=== PATIENT | male | born 1965 | race Hispanic/Latino ===

== ENCOUNTER 2020-06-07 18:44 | Inpatient (IN) | payer OTHER ==
[2020-06-07 20:05] LABS: #Lymphocytes 1.4 thou/uL (1.20-3.40); #Monocytes 0.6 thou/uL (0.11-0.59); #Neutrophils 7.4 thou/uL (1.40-6.50); %Basophils 0.2 % (0.0-1.0); %Eosinophils 0.2 % (0.0-10.0); %Lymphocytes 14.9 % (21.0-51.0); %Monocytes 6.4 % (0.0-10.0); %Neutrophils 78.3 % (42.0-75.0); Hemoglobin 11.4 g/dL (14.0-18.0); Mean Corpuscular HGB CONC 32.9 g/dL (32.0-36.0); Mean Corpuscular Hemoglobin 32.7 pg (27.0-31.0); Mean Corpuscular Volume 99.4 fL (78.0-98.0); Platelet Count 246 thou/uL (130-400); RBC Distribution Width 13.3 % (11.5-14.5); Red Blood Cell (RBC) Count 3.48 mill/uL (4.70-6.10); White Blood Cell (WBC) Count 9.4 thou/uL (4.8-10.8)
[2020-06-07 20:29] LABS: ALT (SGPT) 24 U/L (8-55); AST (SGOT) 24 U/L (5-34); Albumin 3.8 g/dL (3.5-5.0); Alkaline Phosphatase 64 U/L (40-110); Anion Gap 17 mmol/L (10-20); BUN (Urea Nitrogen) 64 mg/dL (8.4-25.7); Bilirubin, Total 0.4 mg/dL (0.2-1.2); Calc. Creatinine Clearance 0 mL/min (70-130); Calcium 8.8 mg/dL (7.8-10.44); Carbon Dioxide 11 mmol/L (22-29); Chloride 111 mmol/L (98-107); Estimated GFR-MDRD 12; Globulin 4.8 g/dL (2.4-3.5); Glucose 114 mg/dL (70-105); Potassium 4.4 mmol/L (3.5-5.1); Protein, Total 8.6 g/dL (6.0-8.3); Sodium 135 mmol/L (136-145)
[2020-06-07 21:13] LABS: Bilirubin Negative (Negative); Blood, Urine 3+ (Negative); Clarity Turbid (Clear); Glucose, Urine (Dipstick) Normal (Negative); Ketone, Urine Negative (Negative); Leukocyte 500 Leu/uL (Negative); Nitrite Negative (Negative); Protein, Urine (Dipstick) 30 mg/dL (Neg-Trace); RBC/HPF Greater than 50 HPF (0-3); Renal Epithelial 0-3 HPF (None Seen); Squamous Epithelial 0-3 HPF (0-3); Urobilinogen Normal mg/dL (Less than 2); WBC/HPF Greater than 50 HPF (0-3); pH, Urine 6.5 (5.0-9.0)
[2020-06-07 21:24] LABS: Bacteria/HPF 2+ HPF (None Seen)
[2020-06-07] MEDS ORDERED: MEROPENEM 1 GM/50 ML 1 GM in Premix Bag 1 BAG IVPB SCH (22:30)
[2020-06-07] MEDS ORDERED: Acetaminophen 325 MG TAB PO PRN (23:46)
[2020-06-07] MEDS ORDERED: Acetaminophen 650 MG Suppository PR PRN (23:46)
--- NOTE | 2020-06-08 01:12 | PDOC.HHP ---
Hospitalist HPI - History of Present Illness Reduced appetite History of Present Illness: Patient seen in Dr. Young office for a routine follow-up and states he was told to come into the ED due to labs showing he was dehydrated. He admits to decreased appetite with subsequent reduced PO intake compared to usual. Denies any nausea or vomiting. No other complaints. Has not had any recent fever or chills. He has a history of a renal transplant and concerned because he took the last of his medications today. He has a history of noncompliance but has been on his medications since recent discharge from the hospital on 05/05/2020. He had been admitted and treated for ARF, hyperphosphotemia, hyponatremia and UTI. Patient states immediately following discharge he was eating well but that has diminished in the last few days. Denies any changes with his stools. He has black colored stools and on occasion mild constipation but this is due to iron supplements. Denies any abodminal pain or bright red blood in stool. No headaches or dizziness. No chest pain or shortness of breath. Denies any lightheadedness. All other review of systems apart from those mentioned above are negative. ED COURSE: Labs done in the ED notable for BUN 64, Creat 4.95, and GFR 12. Per ED, Dr. Stein has advised hydration with plans to bring his creat to 2. UA done in the ED which was notable for turbid appearance, Leukocyte esterase, protein 30, Blood 3+, WCC >50, 2+ bacteria, negative for nitrites. He was started on Meropenem in the ED and given 1L of NS. PAST MEDICAL HISTORY: 1. ESRD 2. SLE. 3. Periarticular subcutaneous nodules, started 5 years after renal transplant. 4. Chronic stutter. 5. Patient was on dialysis prior to transplant. PAST SURGICAL HISTORY: 1. Status post renal biopsy. 2. Status post cholecystectomy. 3. Status post living-related renal transplant. FAMILY HISTORY: Reviewed and noncontributory. SOCIAL HISTORY: He drinks socially. Denies alcohol drinking or drug abuse. He is single and lives with his brother. He works as a maintenance truck driver. Fully independent. Does not require any assistance with mobility devices. ALLERGIES: Cipro, cefazolin, gentamicin, vancomycin CURRENT MEDICATIONS: 1. Calcitriol 0.25 mcg daily. 2. Ferrous sulfate 325 mg p.o. b.i.d. 3. Folic acid 1 mg a day. 4. Prednisone 20 mg p.o. daily for 7 days, then 10 mg p.o. after that daily. 5. Sirolimus 2 mg p.o. daily. 6. Sodium bicarbonate 650 mg p.o. t.i.d. - Exam General Appearance: NAD, awake alert General - other findings: BP: 122/66, Pulse: 80, Resp: 18, Pain: 0, O2 sat: 97 on (RA), Temp 97.9 Eye: PERRL, anicteric sclera ENT: normocephalic atraumatic, no oropharyngeal lesions Neck: supple, no lymphadenopathy Neck - other findings: increased girth on Rt side of neck due to SC deposits, chronic, nontender Heart: RRR, no murmur, no gallops, no rubs, normal peripheral pulses Respiratory: CTAB, no wheezes, no rales, no ronchi, normal chest expansion Gastrointestinal: soft (obese), non-tender, non-distended, normal bowel sounds, no guarding, no rigidity Extremities: 1+ LE edema Extremities - other findings: discoloration due to PVD in BLE. Edema worse in left leg than right. Skin - other findings: diffuse periarticular subcutaneous nodules involving primarily arms/hands. Neurological: cranial nerve grossly intact, normal sensation to touch, no focal deficits Musculoskeletal: normal tone, normal strength, no muscle wasting Psychiatric: normal affect, normal behavior, A&O x 3 Hospitalist Results - Labs Result Diagrams: 06/07/20 19:55 06/07/20 19:55 Lab results: WBC 9.4 thou/uL (4.8-10.8) 06/07/20 19:55 Hgb 11.4 g/dL (14.0-18.0) L 06/07/20 19:55 Hct 34.6 % (42.0-52.0) L 06/07/20 19:55 MCV 99.4 fL (78.0-98.0) H 06/07/20 19:55 Plt Count 246 thou/uL (130-400) 06/07/20 19:55 Neutrophils % 78.3 % (42.0-75.0) H 06/07/20 19:55 Sodium 135 mmol/L (136-145) L 06/07/20 19:55 Potassium 4.4 mmol/L (3.5-5.1) 06/07/20 19:55 Chloride 111 mmol/L (98-107) H 06/07/20 19:55 Carbon Dioxide 11 mmol/L (22-29) L 06/07/20 19:55 BUN 64 mg/dL (8.4-25.7) H 06/07/20 19:55 Creatinine 4.95 mg/dL (0.7-1.3) H 06/07/20 19:55 Glucose 114 mg/dL (70-105) H 06/07/20 19:55 Calcium 8.8 mg/dL (7.8-10.44) 06/07/20 19:55 Total Bilirubin 0.4 mg/dL (0.2-1.2) 06/07/20 19:55 AST 24 U/L (5-34) 06/07/20 19:55 ALT 24 U/L (8-55) 06/07/20 19:55 Alkaline Phosphatase 64 U/L (40-110) 06/07/20 19:55 Serum Total Protein 8.6 g/dL (6.0-8.3) H 06/07/20 19:55 Albumin 3.8 g/dL (3.5-5.0) 06/07/20 19:55 Urine Ketones Negative mg/dL (Negative) 06/07/20 20:47 Urine Blood 3+ (Negative) A 06/07/20 20:47 Urine Nitrite Negative (Negative) 06/07/20 20:47 Ur Leukocyte Esterase 500 Beto/uL (Negative) A 06/07/20 20:47 Urine RBC Greater than 50 HPF (0-3) A 06/07/20 20:47 Urine WBC Greater than 50 HPF (0-3) A 06/07/20 20:47 Ur Squamous Epith Cells 0-3 HPF (0-3) 06/07/20 20:47 Urine Bacteria 2+ HPF (None Seen) A 06/07/20 20:47 Hospitalist H&P A/P - Problem (1) Acute kidney injury superimposed on CKD Code(s): N17.9 - ACUTE KIDNEY FAILURE, UNSPECIFIED; N18.9 - CHRONIC KIDNEY DISEASE, UNSPECIFIED Status: Acute Assessment and Plan: Gentle hydration. Consult placed to Dr. Stein, per ED he has been notified and has made recommendations to keep Creat less than 2. Continue to monitor renal function. (2) Decreased appetite Code(s): R63.0 - ANOREXIA Status: Acute Assessment and Plan: Dairy Farm Operator consult. Could possibly be due to underlying infection. (3) Suspected UTI Code(s): R39.89 - OTHER SYMPTOMS AND SIGNS INVOLVING THE GENITOURINARY SYSTEM Status: Acute Assessment and Plan: Recently treated for UTI during last admission. Patient without any urinary symptoms. No fever or WCC. Multiple allergies to antibiotics. Will hold further antibiotics and wait for UCx results. Repeat labs in the AM, add-on lactic acid. (4) Renal transplant recipient Status: Chronic Assessment and Plan: Ran out of medications but did get his doses for today. Home medications reconciled. Will be administered while he is here until prescriptions are filled. (5) History of systemic lupus erythematosus (SLE) Code(s): M32.9 - SYSTEMIC LUPUS ERYTHEMATOSUS, UNSPECIFIED Status: Acute Assessment and Plan: Per patient does not follow-up with anyone for this. Day team to decide of any indication for rheumatology consult. No superimposed infection apparent on exam. (6) Periarticular subcutaneous nodules Code(s): R22.9 - LOCALIZED SWELLING, MASS AND LUMP, UNSPECIFIED Status: Chronic (7) Lower leg edema Code(s): R60.0 - LOCALIZED EDEMA Status: Chronic Assessment and Plan: Per patient long standing and unchanged. Left with increased swelling compared to right leg. Will obtain venous doppler, given recent admission. - Plan Plan: Surrogate decision maker is his brother Junior Penny.
[2020-06-08] MEDS: Sodium Chloride 0.9% 1,000 ML IV SCH ×3 (01:17→17:23)
[2020-06-08 06:01] LABS: #Eosinphils 0.1 thou/uL (0.0-0.7); #Lymphocytes 3.2 thou/uL (1.20-3.40); #Neutrophils 5.9 thou/uL (1.40-6.50); %Basophils 0.4 % (0.0-1.0); %Eosinophils 0.5 % (0.0-10.0); %Lymphocytes 31.3 % (21.0-51.0); %Neutrophils 57.8 % (42.0-75.0); Mean Corpuscular HGB CONC 32.3 g/dL (32.0-36.0); Mean Corpuscular Hemoglobin 32.7 pg (27.0-31.0); Mean Platelet Volume 7.2 fL (7.4-10.4); Platelet Count 244 thou/uL (130-400); RBC Distribution Width 13.5 % (11.5-14.5); Red Blood Cell (RBC) Count 3.36 mill/uL (4.70-6.10); White Blood Cell (WBC) Count 10.3 thou/uL (4.8-10.8)
[2020-06-08 06:07] LABS: Lactic Acid 1.4 mmol/L (0.5-2.2)
[2020-06-08 06:13] LABS: ALT (SGPT) 22 U/L (8-55); AST (SGOT) 11 U/L (5-34); Albumin 3.7 g/dL (3.5-5.0); Alkaline Phosphatase 63 U/L (40-110); Anion Gap 17 mmol/L (10-20); BUN (Urea Nitrogen) 61 mg/dL (8.4-25.7); Bilirubin, Total 0.3 mg/dL (0.2-1.2); Calc. Creatinine Clearance 0 mL/min (70-130); Calcium 8.7 mg/dL (7.8-10.44); Carbon Dioxide 11 mmol/L (22-29); Chloride 114 mmol/L (98-107); Estimated GFR-MDRD 14; Globulin 4.1 g/dL (2.4-3.5); Glucose 99 mg/dL (70-105); Protein, Total 7.8 g/dL (6.0-8.3); Sodium 138 mmol/L (136-145)
--- NOTE | 2020-06-08 07:34 | ULT ---
Venous duplex sonogram bilateral lower extremity HISTORY: Bilateral leg pain and edema. FINDINGS: Each common femoral vein and greater saphenous junction were evaluated along with each femo ral, deep femoral, popliteal, and posterior tibial vein. Good color and spectral Doppler flow. Good compression. Waveforms are somewhat prominent for venous measurements. IMPRESSION : No evidence of DVT within either lower extremity. Bounding venous waveforms may reflect poor right heart output.
[2020-06-08 08:38] VITALS: BMI 34.2
[2020-06-08] MEDS: Ferrous Sulfate 325 MG TAB PO SCH ×2 (08:39→17:08)
[2020-06-08] MEDS: predniSONE 5 MG TAB PO SCH (08:39)
[2020-06-08] MEDS: Folic Acid 1 MG TAB PO SCH (08:39)
[2020-06-08] MEDS: Calcitriol 0.25 MCG CAP PO SCH (08:39)
--- NOTE | 2020-06-08 09:42 | PRG ---
DATE OF SERVICE: 06/08/2020 SUBJECTIVE: Mr. Penny is a 55-year-old male who is status post living-related renal transplant and now admitted for an acute kidney injury that is most likely hemodynamically mediated renal dysfunction. Please note that the patient was admitted a month ago at the hospital due to worsening renal dysfunction-creatinine was 6.9. At that time, he was volume repleted. 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 It also showed some degree of nephrotoxicity from calcium urine inhibitors. For that reason, he his cyclosporine was discontinued and changed to sirolimus. Since discharge, the patient was doing well until about a week ago when he has not been eating well and not hydrating himself. He went [facility] and was found to have a creatinine that was elevated at 4.95. He was recommended to be admitted. He went to the ER. He is currently undergoing IV hydration due to presumed prerenal azotemia. We will be resuming his prednisone and sirolimus. We are being consulted for further management of this acute kidney injury as well as for his renal transplant management. REVIEW OF SYSTEMS: No chest pain. No shortness of breath. No nausea. No vomiting. Decreased appetite. Decreased energy level. No headache. No diplopia. No syncopal episode. No productive cough. No fever or chills. OBJECTIVE: VITAL SIGNS: Blood pressure 128/89, heart rate 81, respiratory rate 16, temperature 98, O2 saturation 99% on room air. GENERAL: Patient is noted to be awake, alert, comfortable, sitting, not in distress. SKIN: Adequate turgor. HEENT: He has pinkish conjunctivae. Anicteric sclerae. NECK: No neck mass. No carotid bruits. No JVD. CHEST: No deformities. LUNGS: Clear breath sounds. No wheezing. No crackles. HEART: Normal sinus rhythm. No murmur. No gallops. No rubs. ABDOMEN: Globular, soft, nontender, no masses. EXTREMITIES: No edema, no deformities. MEDICATIONS: June 08, 2020, was reviewed. LABORATORY DATA: June 08, 2020, white count 10.3, hemoglobin 11. Sodium 138, potassium 4, chloride 114, carbon dioxide 11, BUN 61, creatinine 4.48. June 07, 2020, BUN 64, creatinine 4.95. May 05, 2020, BUN 48, creatinine 3.0. ASSESSMENT AND PLAN: 1. Status post living-related renal transplant. We will continue current sirolimus at 2 mg tablet once a day as well as the prednisone 10 mg tablet once a day. 2. Acute kidney injury, consider hemodynamically-mediated dysfunction. Agree with IV hydration. Increase normal saline to 100 mL/hour. 3. Metabolic acidosis. Start sodium bicarbonate at 650 mg p.o. t.i.d. 4. No indication for any emergent hemodialysis. The patient has issues about buying his sirolimus. We did help fill up the application form so that the patient can get the complementary sirolimus medication from the drug company. Overall, prognosis remains guarded. Job ID: [id number]
[2020-06-08] MEDS: Sodium Bicarbonate Tab 325 MG TAB PO SCH ×3 (10:26→20:33)
--- NOTE | 2020-06-08 12:01 | PDOC.HOSPP ---
- Subjective Encounter Date: 06/08/20 Encounter Time: 10:20 Subjective: no sob or diarrhea or fever - Objective Vital Signs & Weight: Weight Weight 205 lb 14.588 oz Result Diagrams: 06/08/20 05:40 06/08/20 05:40 Hospitalist ROS - Medication Medications: Active Medications Generic Name Dose Route Start Last Admin Trade Name Freq PRN Reason Stop Dose Admin Calcitriol 0.25 mcg 06/08/20 09:00 06/08/20 08:39 Calcitriol 0.25 Mcg Cap PO 0.25 mcg DAILY TANA Administration Ferrous Sulfate 325 mg 06/08/20 08:00 06/08/20 08:39 Ferrous Sulfate 325 Mg Tab PO 325 mg BID-WM TANA Administration Folic Acid 1 mg 06/08/20 09:00 06/08/20 08:39 Folic Acid 1 Mg Tab PO 1 mg DAILY TANA Administration Sodium Chloride 1,000 mls @ 50 mls/hr 06/07/20 23:45 06/08/20 01:17 Normal Saline 0.9% IV 1,000 mls .Q20H TANA Administration Prednisone 10 mg 06/08/20 08:00 06/08/20 08:39 Prednisone 5 Mg Tab PO 10 mg QAM-WM TANA Administration Sirolimus 2 mg 06/08/20 09:00 06/08/20 08:39 Sirolimus 1 Mg Tab PO 2 mg QAM TANA Administration Sodium Bicarbonate 650 mg 06/08/20 09:00 06/08/20 10:26 Sodium Bicarbonate Tab 325 Mg Tab PO 650 mg TID TANA Administration - Exam General Appearance: awake alert Eye: PERRL, anicteric sclera ENT: normocephalic atraumatic, moist mucosa Neck: supple, no JVD Heart: RRR, no murmur Respiratory: no wheezes, no rales Gastrointestinal: soft, non-tender, non-distended, normal bowel sounds Extremities: no cyanosis, 1+ LE edema Neurological: cranial nerve grossly intact, no focal deficits Psychiatric: normal affect, A&O x 3 Hosp A/P (1) Acute kidney injury superimposed on CKD Code(s): N17.9 - ACUTE KIDNEY FAILURE, UNSPECIFIED; N18.9 - CHRONIC KIDNEY DISEA SE, UNSPECIFIED Status: Acute (2) Moderate dehydration Code(s): E86.0 - DEHYDRATION Status: Acute (3) HTN (hypertension) Code(s): I10 - ESSENTIAL (PRIMARY) HYPERTENSION Status: Chronic Qualifiers: Hypertension type: essential hypertension Qualified Code(s): I10 - Essential (primary) hypertension (4) History of systemic lupus erythematosus (SLE) Code(s): M32.9 - SYSTEMIC LUPUS ERYTHEMATOSUS, UNSPECIFIED Status: Chronic (5) Renal transplant recipient Status: Chronic - Plan gentle iv hydration has consulted is on sirolimus and prednisone likely has steroid induced cushings creatinine around 4.4, is on bicarb po 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 is living with his girlfriend, mobilizes in the house
[2020-06-08 13:33] LABS: SARS-CoV-2 MS2 Positive; SARS-CoV-2 N Gene Negative; SARS-CoV-2 S Gene Negative; SARS-CoV-2 by NAA Not Detected (NotDetected); SARS-CoV-2 orf1ab Negative
[2020-06-09] MEDS: Sodium Chloride 0.9% 1,000 ML IV SCH ×3 (02:30→14:59)
[2020-06-09 03:48] LABS: #Eosinphils 0.1 thou/uL (0.0-0.7); #Lymphocytes 2.6 thou/uL (1.20-3.40); #Monocytes 0.7 thou/uL (0.11-0.59); %Basophils 0.4 % (0.0-1.0); %Eosinophils 0.9 % (0.0-10.0); %Lymphocytes 27.5 % (21.0-51.0); %Monocytes 7.3 % (0.0-10.0); Mean Corpuscular Hemoglobin 32.3 pg (27.0-31.0); Mean Platelet Volume 7.4 fL (7.4-10.4); Platelet Count 203 thou/uL (130-400); RBC Distribution Width 13.5 % (11.5-14.5); Red Blood Cell (RBC) Count 3.11 mill/uL (4.70-6.10); White Blood Cell (WBC) Count 9.3 thou/uL (4.8-10.8)
[2020-06-09 04:08] LABS: ALT (SGPT) 16 U/L (8-55); AST (SGOT) 11 U/L (5-34); Albumin 3.2 g/dL (3.5-5.0); Alkaline Phosphatase 65 U/L (40-110); Anion Gap 14 mmol/L (10-20); BUN (Urea Nitrogen) 54 mg/dL (8.4-25.7); Bilirubin, Total 0.2 mg/dL (0.2-1.2); Calc. Creatinine Clearance 30 mL/min (70-130); Calcium 8.2 mg/dL (7.8-10.44); Carbon Dioxide 14 mmol/L (22-29); Chloride 117 mmol/L (98-107); Estimated GFR-MDRD 17; Globulin 3.5 g/dL (2.4-3.5); Glucose 117 mg/dL (70-105); Potassium 3.5 mmol/L (3.5-5.1); Protein, Total 6.7 g/dL (6.0-8.3); Sodium 141 mmol/L (136-145)
--- NOTE | 2020-06-09 07:49 | PRG ---
DATE OF SERVICE: 06/09/2020 SUBJECTIVE: Mr. Penny is a 55-year-old male, who is status post living-related renal transplant, status post antibody mediated cellular rejection, and was admitted due to volume depletion. Creatinine was noted to be elevated at 4.95. Empiric volume repletion has been given. Renal function is slowly improving. Most recent creatinine now is 3.81 mg%. The patient voices no new complaints. No chest pain or shortness of breath. OBJECTIVE: VITAL SIGNS: Blood pressure is 118/68, heart rate 82, respiratory rate 16, temperature 97.6, and O2 saturation 100%. GENERAL: Awake, alert, comfortable, obese, not in distress. SKIN: Adequate turgor. HEENT: He has pinkish conjunctivae. Anicteric sclerae. No neck mass. No carotid bruits. No JVD. CHEST: No deformities. LUNGS: Clear breath sounds. No wheezing. No crackles. HEART: Normal sinus rhythm. No murmurs, gallops, or rubs. ABDOMEN: Globular, soft, nontender. No masses. EXTREMITIES: No edema. No deformities. Numerous subcutaneous calcifications. MEDICATIONS: Medications of June 09, 2020, reviewed. LABORATORY DATA: Laboratories of June 09, 2020; white count 9.3, hemoglobin 10. Sodium 141, potassium 3.5, chloride 117, carbon dioxide 14, BUN 54, creatinine 3.81. GFR 17 mL/minute. AST 11, ALT 16, and albumin 3.2. June 07, 2020 urinalysis shows rbc greater than 50, wbc greater than 50, protein is 30. 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 ASSESSMENT AND PLAN: 1. Acute kidney injury-most likely superimposed hemodynamically-mediated renal dysfunction. Continue IV fluid-increase normal saline to 125 mL/hour. Creatinine slowly improving. No indication for any dialytic intervention. 2. Status post living-related renal transplant, stable. We will continue current immunosuppressive regimen with this patient. Currently, on sirolimus and prednisone. 3. The patient was counseled regarding adequate p.o. intake. He has not been eating or drinking well at home. 4. We will be rechecking a CBC, basic met in a.m. Job ID: [id number]
[2020-06-09] MEDS: predniSONE 5 MG TAB PO SCH (09:17)
[2020-06-09] MEDS: Ferrous Sulfate 325 MG TAB PO SCH ×2 (09:17→17:42)
[2020-06-09] MEDS: Calcitriol 0.25 MCG CAP PO SCH (09:18)
[2020-06-09] MEDS: Folic Acid 1 MG TAB PO SCH (09:18)
[2020-06-09] MEDS: Sodium Bicarbonate Tab 325 MG TAB PO SCH ×3 (09:57→20:42)
--- NOTE | 2020-06-09 13:14 | PDOC.HOSPP ---
- Subjective Encounter Date: 06/09/20 Encounter Time: 12:00 Subjective: no sob, feels better is amb in room, eating well - Objective Vital Signs & Weight: Vital Signs (12 hours) Temp Pulse Resp BP Pulse Ox 06/09/20 11:57 97.8 F 90 18 134/81 100 06/09/20 08:00 97.7 F 85 18 101/59 L 100 06/09/20 04:00 97.6 F 82 16 118/68 100 Weight Weight 209 lb 3.2 oz I&O: 06/08/20 06/09/20 06/10/20 06:59 06:59 06:59 Intake Total 3160 Balance 3160 Result Diagrams: 06/09/20 03:21 06/09/20 03:21 Hospitalist ROS - Medication Medications: Active Medications Generic Name Dose Route Start Last Admin Trade Name Freq PRN Reason Stop Dose Admin Calcitriol 0.25 mcg 06/08/20 09:00 06/09/20 09:18 Calcitriol 0.25 Mcg Cap PO 0.25 mcg DAILY TANA Administration Ferrous Sulfate 325 mg 06/08/20 08:00 06/09/20 09:17 Ferrous Sulfate 325 Mg Tab PO 325 mg BID-WM TANA Administration Folic Acid 1 mg 06/08/20 09:00 06/09/20 09:18 Folic Acid 1 Mg Tab PO 1 mg DAILY TANA Administration Sodium Chloride 1,000 mls @ 125 mls/hr 06/09/20 07:20 06/09/20 09:20 Normal Saline 0.9% IV 1,000 mls .Q8H TANA Administration Prednisone 10 mg 06/08/20 08:00 06/09/20 09:17 Prednisone 5 Mg Tab PO 10 mg QAM-WM TANA Administration Sirolimus 2 mg 06/08/20 09:00 06/09/20 09:18 Sirolimus 1 Mg Tab PO 2 mg QAM TANA Administration Sodium Bicarbonate 650 mg 06/08/20 09:00 06/09/20 09:57 Sodium Bicarbonate Tab 325 Mg Tab PO 650 mg TID TANA Administration - Exam General Appearance: awake alert Eye: PERRL, anicteric sclera ENT: no oropharyngeal lesions, moist mucosa Neck: supple, no JVD Heart: RRR, no gallops Respiratory: no wheezes, no rales Gastrointestinal: soft, non-tender, non-distended, normal bowel sounds Extremities: no cyanosis, 1+ LE edema Neurological: cranial nerve grossly intact, no focal deficits Psychiatric: A&O x 3 Hosp A/P (1) Acute kidney injury superimposed on CKD Code(s): N17.9 - ACUTE KIDNEY FAILURE, UNSPECIFIED; N18.9 - CHRONIC KIDNEY DISEASE, UNSPECIFIED Status: Acute (2) Moderate dehydration Code(s): E86.0 - DEHYDRATION Status: Acute (3) HTN (hypertension) Code(s): I10 - ESSENTIAL (PRIMARY) HYPERTENSION Status: Chronic Qualifiers: Hypertension type: essential hypertension Qualified Code(s): I10 - Essential (primary) hypertension (4) History of systemic lupus erythematosus (SLE) Code(s): M32.9 - SYSTEMIC LUPUS ERYTHEMATOSUS, UNSPECIFIED Status: Chronic (5) Renal transplant recipient Status: Chronic - Plan gentle iv hydration is on sirolimus and prednisone likely has steroid induced cushings creatinine around 3.8, is on bicarb po 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 is living with his girlfriend, mobilizes in the house hemostable
[2020-06-10] MEDS: Sodium Chloride 0.9% 1,000 ML IV SCH ×4 (00:30→22:39)
[2020-06-10 05:48] LABS: #Eosinphils 0.1 thou/uL (0.0-0.7); #Lymphocytes 2.8 thou/uL (1.20-3.40); #Monocytes 0.7 thou/uL (0.11-0.59); #Neutrophils 5.3 thou/uL (1.40-6.50); %Basophils 0.4 % (0.0-1.0); %Eosinophils 1.5 % (0.0-10.0); %Lymphocytes 30.6 % (21.0-51.0); %Monocytes 8.2 % (0.0-10.0); %Neutrophils 59.4 % (42.0-75.0); Hemoglobin 9.6 g/dL (14.0-18.0); Mean Corpuscular HGB CONC 31.2 g/dL (32.0-36.0); Mean Corpuscular Hemoglobin 31.7 pg (27.0-31.0); Mean Platelet Volume 7.5 fL (7.4-10.4); Platelet Count 193 thou/uL (130-400); RBC Distribution Width 13.6 % (11.5-14.5); Red Blood Cell (RBC) Count 3.02 mill/uL (4.70-6.10)
[2020-06-10 06:09] LABS: Anion Gap 14 mmol/L (10-20); BUN (Urea Nitrogen) 48 mg/dL (8.4-25.7); Calc. Creatinine Clearance 36 mL/min (70-130); Calcium 8.2 mg/dL (7.8-10.44); Carbon Dioxide 15 mmol/L (22-29); Chloride 117 mmol/L (98-107); Estimated GFR-MDRD 20; Glucose 99 mg/dL (70-105); Potassium 3.5 mmol/L (3.5-5.1); Sodium 142 mmol/L (136-145)
--- NOTE | 2020-06-10 08:08 | PRG ---
DATE OF SERVICE: 06/10/2020 SUBJECTIVE: Mr. Penny is a 55-year-old male, status post living-related renal transplant, recently had a biopsy-proven diagnosis of acute cellular rejection-antibody mediated and admitted for an acute kidney injury due to volume depletion. He is currently receiving IV hydration. The patient has been counseled regarding fluid and p.o. intake at home. He also ran out of his sirolimus. Application form has been done for the patient and we will attempt to re-fax it again to the drug company. No complaints of chest pain or shortness of breath. OBJECTIVE: VITAL SIGNS: Blood pressure 124/63, heart rate 84, respiratory rate 16, temperature 97.8, O2 saturation 100%. GENERAL: The patient is awake, alert, supine, comfortable, not in distress. SKIN: Adequate turgor. HEENT: Slightly pale conjunctivae. Anicteric sclerae. NECK: No neck mass. No carotid bruits. No JVD. CHEST: No deformities. LUNGS: Clear breath sounds. HEART: Normal sinus rhythm. No murmurs, gallops, or rubs. ABDOMEN: Globular, soft, nontender. No masses. EXTREMITIES: No edema. No deformities. MEDICATIONS: On June 10, 2020, were reviewed. LABORATORY DATA: On June 10, 2020, white count 9, hemoglobin 9.6. Sodium 142, potassium 3.5, chloride 117, carbon dioxide 15, BUN 48, creatinine 3.3, GFR 20 mL/min, glucose 99, calcium 8.2. ASSESSMENT AND PLAN: 1. Anemia. We will increase ferrous sulfate to one tablet b.i.d. 2. Acute kidney [id number]-ydmommgy renal dysfunction. Creatinine slowly improving from a peak of 4.95 to a most recent value of 3.3. Continue IV hydration. Currently, on normal saline at 125 mL/hour. 3. Secondary hyperparathyroidism. Continue calcitriol. We will recheck basic metabolic profile and CBC in a.m. Job ID: [id number]
[2020-06-10] MEDS: Folic Acid 1 MG TAB PO SCH (08:25)
[2020-06-10] MEDS: predniSONE 5 MG TAB PO SCH (08:25)
[2020-06-10] MEDS: Ferrous Sulfate 325 MG TAB PO SCH ×2 (08:26→17:27)
[2020-06-10] MEDS: Sodium Bicarbonate Tab 325 MG TAB PO SCH ×3 (08:26→20:54)
[2020-06-10] MEDS: Calcitriol 0.25 MCG CAP PO SCH (08:26)
--- NOTE | 2020-06-10 10:37 | PDOC.HOSPP ---
- Subjective Encounter Date: 06/10/20 Encounter Time: 10:00 Subjective: no sob, feels better - Objective Vital Signs & Weight: Vital Signs (12 hours) Temp Pulse Resp BP Pulse Ox 06/10/20 08:00 98.5 F 95 18 119/74 97 Weight Weight 214 lb 11.2 oz I&O: 06/09/20 06/10/20 06/11/20 06:59 06:59 06:59 Intake Total 3160 1910 Balance 3160 191 Result Diagrams: 06/10/20 05:19 06/10/20 05:19 Hospitalist ROS - Medication Medications: Active Medications Generic Name Dose Route Start Last Admin Trade Name Freq PRN Reason Stop Dose Admin Calcitriol 0.25 mcg 06/08/20 09:00 06/10/20 08:26 Calcitriol 0.25 Mcg Cap PO 0.25 mcg DAILY TANA Administration Ferrous Sulfate 325 mg 06/08/20 08:00 06/10/20 08:26 Ferrous Sulfate 325 Mg Tab PO 325 mg BID-WM TANA Administration Folic Acid 1 mg 06/08/20 09:00 06/10/20 08:25 Folic Acid 1 Mg Tab PO 1 mg DAILY TANA Administration Sodium Chloride 1,000 mls @ 125 mls/hr 06/09/20 07:20 06/10/20 08:28 Normal Saline 0.9% IV 1,000 mls .Q8H TANA Administration Prednisone 10 mg 06/08/20 08:00 06/10/20 08:25 Prednisone 5 Mg Tab PO 10 mg QAM-WM TANA Administration Sirolimus 2 mg 06/08/20 09:00 06/10/20 08:26 Sirolimus 1 Mg Tab PO 2 mg QAM TANA Administration Sodium Bicarbonate 650 mg 06/08/20 09:00 06/10/20 08:26 Sodium Bicarbonate Tab 325 Mg Tab PO 650 mg TID TANA Administration - Exam General Appearance: awake alert Eye: PERRL, anicteric sclera ENT: no oropharyngeal lesions, moist mucosa Neck: supple, no JVD Heart: RRR, no murmur Respiratory: no wheezes, no rales Gastrointestinal: soft, non-tender, non-distended, normal bowel sounds Extremities: no cyanosis, no edema Neurological: cranial nerve grossly intact, no focal deficits Psychiatric: normal affect, A&O x 3 Hosp A/P (1) Acute kidney injury superimposed on CKD Code(s): N17.9 - ACUTE KIDNEY FAILURE, UNSPECIFIED; N18.9 - CHRONIC KIDNEY DISEASE, UNSPECIFIED Status: Acute (2) Moderate dehydration Code(s): E86.0 - DEHYDRATION Status: Acute (3) HTN (hypertension) Code(s): I10 - ESSENTIAL (PRIMARY) HYPERTENSION Status: Chronic Qualifiers: Hypertension type: essential hypertension Qualified Code(s): I10 - Essential (primary) hypertension (4) History of systemic lupus erythematosus (SLE) Code(s): M32.9 - SYSTEMIC LUPUS ERYTHEMATOSUS, UNSPECIFIED Status: Chronic (5) Renal transplant recipient Status: Chronic - Plan continue iv hydration is on sirolimus and prednisone likely has steroid induced cushings creatinine around 3, is on bicarb po 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 is living with his girlfriend, mobilizes in the house hemostable dc plan in am if cleared by
[2020-06-10] MEDS: Polyethylene Glycol 3350 17 GM Packet PO SCH (14:48)
[2020-06-11 03:50] LABS: #Eosinphils 0.1 thou/uL (0.0-0.7); #Lymphocytes 2.4 thou/uL (1.20-3.40); #Monocytes 0.6 thou/uL (0.11-0.59); #Neutrophils 5.7 thou/uL (1.40-6.50); %Eosinophils 0.9 % (0.0-10.0); %Monocytes 6.9 % (0.0-10.0); %Neutrophils 65.2 % (42.0-75.0); Hemoglobin 9.5 g/dL (14.0-18.0); Mean Corpuscular HGB CONC 32.2 g/dL (32.0-36.0); Mean Corpuscular Hemoglobin 32.9 pg (27.0-31.0); Mean Platelet Volume 7.2 fL (7.4-10.4); Platelet Count 181 thou/uL (130-400); RBC Distribution Width 13.7 % (11.5-14.5); White Blood Cell (WBC) Count 8.8 thou/uL (4.8-10.8)
[2020-06-11 04:12] LABS: Anion Gap 14 mmol/L (10-20); BUN (Urea Nitrogen) 45 mg/dL (8.4-25.7); Calc. Creatinine Clearance 38 mL/min (70-130); Carbon Dioxide 14 mmol/L (22-29); Chloride 117 mmol/L (98-107); Estimated GFR-MDRD 21; Glucose 92 mg/dL (70-105); Potassium 3.5 mmol/L (3.5-5.1); Sodium 141 mmol/L (136-145)
[2020-06-11] MEDS: Sodium Chloride 0.9% 1,000 ML IV SCH ×3 (06:34→23:53)
[2020-06-11] MEDS: predniSONE 5 MG TAB PO SCH (08:18)
[2020-06-11] MEDS: Ferrous Sulfate 325 MG TAB PO SCH ×2 (08:18→17:46)
[2020-06-11] MEDS: Sodium Bicarbonate Tab 325 MG TAB PO SCH ×3 (08:18→20:30)
[2020-06-11] MEDS: Folic Acid 1 MG TAB PO SCH (08:18)
[2020-06-11] MEDS: Calcitriol 0.25 MCG CAP PO SCH (08:19)
[2020-06-11] MEDS: Polyethylene Glycol 3350 17 GM Packet PO SCH (08:19)
--- NOTE | 2020-06-11 08:27 | PRG ---
DATE OF SERVICE: 06/11/2020 SUBJECTIVE: Mr. Penny is a 55-year-old male, who is status post living-related renal transplant, who was admitted for an acute kidney injury. The acute kidney injury was a hemodynamically-mediated dysfunction. He has been receiving IV hydration with slow improvement of the renal function. He is continuing his current immunosuppressive regimen. This morning, he voices no new complaints. He denies any chest pain or shortness of breath. OBJECTIVE: VITAL SIGNS: Blood pressure 115/68, heart rate 87, respiratory rate 18, temperature 97.9, O2 saturation 99% on room air. GENERAL: The patient is awake, alert, supine, comfortable, not in overt distress. Obese. SKIN: Adequate turgor. HEENT: He has pinkish slightly pale conjunctivae. Anicteric sclerae. NECK: No neck mass. No carotid bruits. No JVD. CHEST: No deformities. LUNGS: Clear breath sounds. No wheezing. No crackles. HEART: Normal sinus rhythm. No murmur. No gallops. No rubs. ABDOMEN: Globular, soft, nontender. No masses. EXTREMITIES: No edema. No deformities. MEDICATIONS: Medications of June 11, 2020, were reviewed. LABORATORY DATA: Laboratories of June 11, 2020; white count 8.8, hemoglobin 9.5. Sodium 141, potassium 3.5, chloride 117, carbon dioxide 14, BUN 45, creatinine 3.09, GFR 21 mL/minute, glucose 92, calcium 8. ASSESSMENT AND PLAN: 1. Acute kidney injury-a superimposed hemodynamically-mediated renal dysfunction. Continue IV hydration. Slowly improving renal function. No indication for any dialytic intervention. 2. Status post living-related renal transplant-the patient is status post renal biopsy with findings of an antibody mediated cellular rejection. Currently, on sirolimus and prednisone. Again as previously mentioned, there is no indication for any dialytic intervention with this patient. 3. Anemia-currently on iron supplementation. Recheck CBC, basic metabolic profile in a.m. Job ID: [id number]
--- NOTE | 2020-06-11 11:47 | PDOC.HOSPP ---
- Subjective Encounter Date: 06/11/20 Encounter Time: 10:00 Subjective: no sob, feels better is ambulating in room - Objective Vital Signs & Weight: Vital Signs (12 hours) Temp Pulse Resp BP Pulse Ox 06/11/20 07:30 97.9 F 87 18 115/68 99 Weight Weight 216 lb I&O: 06/10/20 06/11/20 06/12/20 06:59 06:59 06:59 Intake Total 1909 4110 Balance 1909 411 Result Diagrams: 06/11/20 03:17 06/11/20 03:17 Hospitalist ROS - Medication Medications: Active Medications Generic Name Dose Route Start Last Admin Trade Name Freq PRN Reason Stop Dose Admin Calcitriol 0.25 mcg 06/08/20 09:00 06/11/20 08:19 Calcitriol 0.25 Mcg Cap PO 0.25 mcg DAILY TANA Administration Ferrous Sulfate 325 mg 06/08/20 08:00 06/11/20 08:18 Ferrous Sulfate 325 Mg Tab PO 325 mg BID-WM TANA Administration Folic Acid 1 mg 06/08/20 09:00 06/11/20 08:18 Folic Acid 1 Mg Tab PO 1 mg DAILY TANA Administration Sodium Chloride 1,000 mls @ 125 mls/hr 06/09/20 07:20 06/11/20 06:34 Normal Saline 0.9% IV 1,000 mls .Q8H TANA Administration Polyethylene Glycol 17 gm 06/10/20 09:00 06/11/20 08:19 Polyethylene Glycol 3350 17 Gm Packet PO Not Given DAILY TANA Prednisone 10 mg 06/08/20 08:00 06/11/20 08:18 Prednisone 5 Mg Tab PO 10 mg QAM-WM TANA Administration Sirolimus 2 mg 06/08/20 09:00 06/11/20 08:19 Sirolimus 1 Mg Tab PO 2 mg QAM TANA Administration Sodium Bicarbonate 650 mg 06/08/20 09:00 06/11/20 08:18 Sodium Bicarbonate Tab 325 Mg Tab PO 650 mg TID TANA Administration - Exam General Appearance: awake alert Eye: PERRL, anicteric sclera ENT: no oropharyngeal lesions, moist mucosa Neck: supple, no JVD Heart: RRR, no murmur Respiratory: no wheezes, no rales Gastrointestinal: soft, non-tender, non-distended, normal bowel sounds Extremities: no cyanosis, no edema Neurological: cranial nerve grossly intact, no focal deficits Psychiatric: normal affect, A&O x 3 Hosp A/P (1) Acute kidney injury superimposed on CKD Code(s): N17.9 - ACUTE KIDNEY FAILURE, UNSPECIFIED; N18.9 - CHRONIC KIDNEY DISEASE, UNSPECIFIED Status: Acute (2) Moderate dehydration Code(s): E86.0 - DEHYDRATION Status: Resolved (3) HTN (hypertension) Code(s): I10 - ESSENTIAL (PRIMARY) HYPERTENSION Status: Chronic Qualifiers: Hypertension type: essential hypertension Qualified Code(s): I10 - Essential (primary) hypertension (4) History of systemic lupus erythematosus (SLE) Code(s): M32.9 - SYSTEMIC LUPUS ERYTHEMATOSUS, UNSPECIFIED Status: Chronic (5) Renal transplant recipient Status: Chronic - Plan continue iv hydration is on sirolimus and prednisone likely has steroid induced cushings creatinine around 3, is on bicarb po 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 is living with his girlfriend, mobilizes well hemostable dc plan likely sunday, d/w
[2020-06-12 04:31] LABS: #Eosinphils 0.2 thou/uL (0.0-0.7); #Lymphocytes 2.7 thou/uL (1.20-3.40); #Monocytes 0.6 thou/uL (0.11-0.59); #Neutrophils 5.3 thou/uL (1.40-6.50); %Basophils 0.2 % (0.0-1.0); %Eosinophils 1.9 % (0.0-10.0); %Lymphocytes 30.3 % (21.0-51.0); %Monocytes 7.3 % (0.0-10.0); %Neutrophils 60.3 % (42.0-75.0); Hemoglobin 9.5 g/dL (14.0-18.0); Mean Corpuscular HGB CONC 31.8 g/dL (32.0-36.0); Mean Corpuscular Hemoglobin 32.6 pg (27.0-31.0); Mean Platelet Volume 7.2 fL (7.4-10.4); Platelet Count 173 thou/uL (130-400); RBC Distribution Width 13.8 % (11.5-14.5); Red Blood Cell (RBC) Count 2.92 mill/uL (4.70-6.10); White Blood Cell (WBC) Count 8.7 thou/uL (4.8-10.8)
[2020-06-12 04:53] LABS: Anion Gap 11 mmol/L (10-20); BUN (Urea Nitrogen) 43 mg/dL (8.4-25.7); Calc. Creatinine Clearance 39 mL/min (70-130); Calcium 8.1 mg/dL (7.8-10.44); Carbon Dioxide 14 mmol/L (22-29); Chloride 117 mmol/L (98-107); Estimated GFR-MDRD 22; Glucose 98 mg/dL (70-105); Potassium 3.5 mmol/L (3.5-5.1); Sodium 138 mmol/L (136-145)
[2020-06-12 09:30] VITALS: BP 117/73; TEMP 97.5
[2020-06-12] MEDS: Ferrous Sulfate 325 MG TAB PO SCH (09:38)
[2020-06-12] MEDS: predniSONE 5 MG TAB PO SCH (09:38)
[2020-06-12] MEDS: Folic Acid 1 MG TAB PO SCH (09:38)
[2020-06-12] MEDS: Sodium Bicarbonate Tab 325 MG TAB PO SCH (09:38)
[2020-06-12] MEDS: Calcitriol 0.25 MCG CAP PO SCH (09:39)
[2020-06-12] MEDS: Polyethylene Glycol 3350 17 GM Packet PO SCH (09:39)
[2020-06-12] MEDS: Sodium Chloride 0.9% 1,000 ML IV SCH (09:39)
--- NOTE | 2020-06-12 10:17 | PRG ---
DATE OF SERVICE: 06/12/2020 SUBJECTIVE: Mr. Penny is a 55-year-old male, who is status post living-related renal transplant, recent diagnosis of antibody-mediated renal rejection, and readmitted due to acute kidney injury that was hemodynamically-mediated renal dysfunction. The patient has had a history of decreased p.o. intake and has weight loss. During this hospitalization, his creatinine has slowly improved from a peak of 4.95 to a most recent value of 3.01. He was also maintained on the sirolimus and prednisone. During this hospitalization, the case monitor helped him to obtain the sirolimus. No new complaints today. No chest pain or shortness of breath. OBJECTIVE: VITAL SIGNS: Blood pressure 117/73, heart rate 99, respiratory rate 18, temperature 97.5, O2 sats 96%. GENERAL: The patient is awake, alert, comfortable, not in distress. SKIN: Adequate turgor. HEENT: Pinkish conjunctivae. Anicteric sclerae. No neck mass. No carotid bruits. No JVD. CHEST: No deformities. LUNGS: Clear breath sounds. No wheezing. No crackles. HEART: Normal sinus rhythm. No murmurs. No gallops. No rubs. ABDOMEN: Globular, soft, nontender. No masses. EXTREMITIES: No edema. No deformities. MEDICATIONS: Medications of June 12, 2020, reviewed. LABORATORY DATA: Laboratories of June 12, 2020: White count 8.7, hemoglobin 9.5. potassium 3.5, chloride 117, carbon dioxide 14, BUN 43, creatinine 3.01, glucose 98, calcium 8.1. ASSESSMENT AND PLAN: 1. Acute kidney injury - much improved creatinine. I feel that creatinine 3.01 is near baseline. Consider for discharge today and follow up with Renal Clinic. 2. Status post living-related renal transplant. We will continue sirolimus and prednisone. Please note, the patient has a biopsy which showed an antibody- mediated rejection. He also had some evidence of calcineurin nephrotoxicity. For that reason, the patient was told not to take his cyclosporine. 3. Anemia. Continuing daily iron supplementation. From a renal point of view, the patient can be discharged. The patient was instructed to call my office for a followup visit. Job ID: [id number] [facility] CENTERFernando
--- NOTE | 2020-06-12 10:30 | PDOC.HOSPP ---
- Subjective Encounter Date: 06/12/20 Encounter Time: 10:28 Subjective: Mr. Penny was seen today in follow-up of acute on chronic kidney disease. He does not have any complaints. - Objective Vital Signs & Weight: Vital Signs (12 hours) Temp Pulse Resp BP Pulse Ox 06/12/20 08:00 97.5 F L 99 18 117/73 96 Weight Weight 216 lb I&O: 06/11/20 06/12/20 06/13/20 06:59 06:59 06:59 Intake Total 4110 2800 Balance 4110 2800 Result Diagrams: 06/12/20 03:39 06/12/20 03:40 Hospitalist ROS - Medication Medications: Active Medications Generic Name Dose Route Start Last Admin Trade Name Freq PRN Reason Stop Dose Admin Acetaminophen 650 mg 06/07/20 23:46 06/11/20 20:30 Acetaminophen 325 Mg Tab PO 650 mg Q4H PRN Administration Headache/Fever/Mild Pain (1-3) Calcitriol 0.25 mcg 06/08/20 09:00 06/12/20 09:39 Calcitriol 0.25 Mcg Cap PO 0.25 mcg DAILY TANA Administration Ferrous Sulfate 325 mg 06/08/20 08:00 06/12/20 09:38 Ferrous Sulfate 325 Mg Tab PO 325 mg BID-WM TAAN Administration Folic Acid 1 mg 06/08/20 09:00 06/12/20 09:38 Folic Acid 1 Mg Tab PO 1 mg DAILY TANA Administration Sodium Chloride 1,000 mls @ 125 mls/hr 06/09/20 07:20 06/12/20 09:39 Normal Saline 0.9% IV 1,000 mls .Q8H TANA Administration Polyethylene Glycol 17 gm 06/10/20 09:00 06/12/20 09:39 Polyethylene Glycol 3350 17 Gm Packet PO Not Given DAILY TANA Prednisone 10 mg 06/08/20 08:00 06/12/20 09:38 Prednisone 5 Mg Tab PO 10 mg QAM-WM TANA Administration Sirolimus 2 mg 06/08/20 09:00 06/12/20 09:39 Sirolimus 1 Mg Tab PO 2 mg QAM TANA Administration Sodium Bicarbonate 650 mg 06/08/20 09:00 06/12/20 09:38 Sodium Bicarbonate Tab 325 Mg Tab PO 650 mg TID TANA Administration - Exam Eye: PERRL, anicteric sclera Heart: RRR, no murmur, no gallops, no rubs, normal peripheral pulses Respiratory: CTAB, no wheezes, no rales, no ronchi, normal chest expansion, no tachypnea, normal percussion Gastrointestinal: soft, non-tender, non-distended, normal bowel sounds, no palpable masses, no hepatomegaly Extremities: no cyanosis, no edema Hosp A/P (1) HTN (hypertension) Code(s): I10 - ESSENTIAL (PRIMARY) HYPERTENSION Status: Chronic Qualifiers: Hypertension type: essential hypertension Qualified Code(s): I10 - Essential (primary) hypertension (2) History of systemic lupus erythematosus (SLE) Code(s): M32.9 - SYSTEMIC LUPUS ERYTHEMATOSUS, UNSPECIFIED Status: Chronic (3) Moderate dehydration Code(s): E86.0 - DEHYDRATION Status: Resolved (4) Acute kidney injury superimposed on CKD Code(s): N17.9 - ACUTE KIDNEY FAILURE, UNSPECIFIED; N18.9 - CHRONIC KIDNEY DI SEASE, UNSPECIFIED Status: Acute (5) Renal transplant recipient Status: Chronic - Plan * Acute on chronic kidney injury- he is close to his baseline * He has been cleared for discharge by Dr. Stein * Stable for discharge from IM standpoint
--- NOTE | 2020-06-14 08:53 | DIS ---
DATE OF ADMISSION: 06/09/2020 DATE OF DISCHARGE: 06/12/2020 DISCHARGE DISPOSITION: Home. DISCHARGE DIAGNOSES: 1. Acute on chronic kidney injury. 2. History of systemic lupus erythematosus. 3. T-cell mediated transplant rejection. 4. Status post renal transplant. 5. History of end-stage renal disease. DISCHARGE MEDICATIONS: Include; 1. Rocaltrol 0.25 mcg daily. 2. Sirolimus 2 mg daily. 3. Folic acid 1 mg p.o. daily. 4. Sodium bicarbonate 650 mg p.o. t.i.d. 5. Prednisone 10 mg p.o. daily. 6. Iron 65 mg p.o. daily. IMAGING DONE DURING THE HOSPITAL STAY: The patient had bilateral lower extremity venous Dopplers, which was negative for DVT. CODE STATUS: Full code. ALLERGIES: TO CEFAZOLIN, CIPROFLOXACIN, GENTAMICIN, AND VANCOMYCIN. HOSPITAL COURSE: Mr. Penny is a pleasant 55-year-old gentleman who presented to the emergency room with decreased appetite and generalized weakness. He was found to be in acute on chronic kidney injury. This was thought to be due to volume depletion and prerenal azotemia. He was gently hydrated over the course of several days. Due to his history of previous renal transplant, Dr. Stein, his engineering director, was consulted as well. 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 He will be following up with Dr. Stein in the outpatient setting and he was also taken off of cyclophosphamide due to evidence of calcineurin nephrotoxicity. He has an appointment already scheduled with Dr. Stein, which he is to follow up with and also he is to follow up with his primary care physician, Dr. Cannon in approximately 1 week as well too. Job ID: [id number]
--- NOTE | 2020-06-15 01:32 | PQF ---
CLINICAL DOCUMENTATION CLARIFICATION FORM: Dear : Neil Jasso Date / Time: 06/15/20 0131 Please exercise your independent, professional judgment in responding to the clarification form. Clinical indicators are provided on the bottom of this form for your review Please check appropriate box(es): Acute on Chronic Renal Failure Please specify Stage of CKD : [ ] CKD stage 1 [ ] CKD stage 2 [ ] CKD stage 3 [X ] CKD stage 4 [ ] CKD stage 5 [ ] ESRD [ ] Other diagnosis [ ] Unable to determine Physician Signature: Date/Time: For continuity of documentation, please document condition throughout progress notes and discharge summary. Thank You. To be completed by CDI/Coding staff for physician review: Present Clinical Indicators - Signs / Symptoms / Labs Results and Location in Medical Record [X] BP 128/89, Pulse 81, Resp 16, Temp 98.0 Vital signs 06/07 [X] BUN 64, Creatinine 4.95 GFR 12 Laboratory 06/07 [X] BUN 61, Creatinine 4.48, GFR 14 Laboratory 06/08 [X] BUN 54, Creatinine 3.81, GFR 17 Laboratory 06/09 [X] Pt was on dialysis prior to transplant H&P p1 06/09 Catalan PA-C [X] Come into the ED due to labs showing hr was dehydrated H&P p1 06/09 Catalan PA-C [X] Acute kidney injury superimposed CKD H&P p3 06/09 Catalan PA-C [X] lower leg edema H&P p3 06/09 Catalan PA-C Present Risk Factors Results and Location in Medical Record [X] Hx of ESRD s/p renal transplant H&P p1 06/09 Catalan PA-C [X] SLE H&P p1 06/09 Catalan PA-C [X] HTN Present Treatments Results and Location in Medical Record [X] IVF NS 1L MAR 06/07 [X] IV Bicarbonate 650 oral NOV 23 [X] Series of GFR labs Laboratory 06/07 [X] Nephorlogy Consult Consult Dr Stein 06/08 CDS/Automatic Pad Making Machine Operator Signature: Vanessa Pradhan Phone #: ext [phone] Date/Time: 06/15/2020 0131 This is a permanent part of the Medical Record [facility]
== END 2020-06-12 13:50 | disposition home or self-care (01) | DRG 699 ==
LOC: ERS 18:44 → ERHOLD 21:52 → ONC 06-08 12:15 → OBSVTOIN 06-09 10:09
PROVIDERS: ADMIT Internal Medicine; ATTEND Internal Medicine
DX: T86.12 Kidney transplant failure (principal); N17.9 Acute kidney failure, unspecified; E87.2 Acidosis; N25.81 Secondary hyperparathyroidism of renal origin; N18.4 Chronic kidney disease, stage 4 (severe); M32.9 Systemic lupus erythematosus, unspecified; Y83.0 Surgical operation with transplant of whole organ as the cause of abnormal reaction of the patient, or of later complication, without mention of misadventure at the time of the procedure; Z20.828 Contact with and (suspected) exposure to other viral communicable diseases; E86.0 Dehydration; R63.0 Anorexia; R22.9 Localized swelling, mass and lump, unspecified; E86.9 Volume depletion, unspecified; D63.1 Anemia in chronic kidney disease; Z88.1 Allergy status to other antibiotic agents; Z68.35 Body mass index [BMI] 35.0-35.9, adult; Z79.899 Other long term (current) drug therapy; Z79.52 Long term (current) use of systemic steroids
CPT/HCPCS: 36415; 80048; 80053; 81003; 81015; 83605; 83735; 85025; 87086; 87635; 93970; 96361; 96365; G0378; J7512; J7520; U0003

== ENCOUNTER 2021-03-21 12:31 | Inpatient (IN) | payer MEDICAID, OTHER ==
[2021-03-21] MEDS ORDERED: Azithromycin 500 MG VIAL ONE (13:13)
[2021-03-21 13:19] LABS: Hemoglobin 12.5 g/dL (14.0-18.0); Mean Corpuscular HGB CONC 31.2 g/dL (32.0-36.0); Mean Platelet Volume 7.5 fL (7.4-10.4); Platelet Count 162 thou/uL (130-400); RBC Distribution Width 14.4 % (11.5-14.5); Red Blood Cell (RBC) Count 4.16 mill/uL (4.70-6.10); White Blood Cell (WBC) Count 24.3 thou/uL (4.8-10.8)
[2021-03-21 13:32] LABS: ALT (SGPT) 21 U/L (8-55); AST (SGOT) 22 U/L (5-34); Albumin 3.6 g/dL (3.5-5.0); Alkaline Phosphatase 63 U/L (40-110); Anion Gap 21 mmol/L (10-20); BUN (Urea Nitrogen) 47 mg/dL (8.4-25.7); Bilirubin, Total 1.1 mg/dL (0.2-1.2); Calc. Creatinine Clearance 0 mL/min (70-130); Carbon Dioxide 10 mmol/L (22-29); Chloride 108 mmol/L (98-107); Glucose 93 mg/dL (70-105); Protein, Total 8.6 g/dL (6.0-8.3); Sodium 135 mmol/L (136-145)
[2021-03-21 13:43] LABS: Band 39 % (5-11); Lymphocytes 7 % (21-51); MDiff Complete? YES; Monocytes 9 % (0-10); Neutrophil 43 % (42-75); Platelet Morphology Comment Appears Adequate; Polychromasia SLIGHT = 2-3 cells (100X) (0-2/hpf); Reactive Lymphocytes 2 % (0-10)
[2021-03-21 13:54] LABS: SARS-CoV-2 NAA Rapid Test Not Detected (NotDetected)
[2021-03-21 13:54] LABS: CKMB 0.9 ng/mL (0-6.6)
[2021-03-21 16:16] LABS: Bilirubin Negative (Negative); Blood, Urine 3+ (Negative); Clarity Extra Turbid (Clear); Glucose, Urine (Dipstick) Normal (Negative); Ketone, Urine Negative (Negative); Leukocyte 500 Leu/uL (Negative); Nitrite Negative (Negative); Protein, Urine (Dipstick) 70 mg/dL (Neg-Trace); RBC/HPF Greater than 50 HPF (0-3); Specific Gravity, Urine 1.015 (1.002-1.036); Squamous Epithelial 0-3 HPF (0-3); Urobilinogen Normal mg/dL (Less than 2); WBC/HPF Greater than 50 HPF (0-3)
[2021-03-21] MEDS ORDERED: Ondansetron ODT 4 MG TAB PO PRN (16:16)
[2021-03-21 16:21] LABS: Bacteria/HPF 1+ HPF (None Seen)
[2021-03-21 17:17] LABS: Phosphorus 3.4 mg/dL (2.3-4.7)
[2021-03-21 17:23] LABS: Troponin I 0.015 ng/mL (< 0.028)
[2021-03-21] MEDS ORDERED: predniSONE 20 MG TAB PO SCH (17:30)
[2021-03-21] MEDS ORDERED: Diltiazem 125 MG in Sodium Chloride 0.9% 100 ML IVPB SCH ×2 (17:30→19:15)
[2021-03-21 18:19] VITALS: BMI 33.3
[2021-03-21] MEDS: Sodium Chloride 0.9% 1,000 ML IV SCH (18:30)
[2021-03-21] MEDS ORDERED: Piperacillin/Tazobactam 3.375 GM in Sodium Chloride 0.9% 100 ML IVPB SCH (18:30)
[2021-03-21 20:14] LABS: Troponin I 0.011 ng/mL (< 0.028)
[2021-03-21 20:48] LABS: Creatinine, Urine 39.75 mg/dL (63-166)
[2021-03-21] MEDS: Heparin 5,000 UNITS/ML VIAL SC SCH (22:23)
[2021-03-22] MEDS: Sodium Chloride 0.9% 1,000 ML IV SCH ×4 (01:13→18:13)
[2021-03-22 05:03] LABS: #Lymphocytes 2.8 thou/uL (1.20-3.40); #Monocytes 1.1 thou/uL (0.11-0.59); #Neutrophils 20.2 thou/uL (1.40-6.50); %Basophils 0.1 % (0.0-1.0); %Eosinophils 0.1 % (0.0-10.0); %Lymphocytes 11.6 % (21.0-51.0); %Monocytes 4.4 % (0.0-10.0); %Neutrophils 83.8 % (42.0-75.0); Hemoglobin 10.6 g/dL (14.0-18.0); Mean Corpuscular Hemoglobin 29.8 pg (27.0-31.0); Mean Corpuscular Volume 96.1 fL (78.0-98.0); Mean Platelet Volume 7.6 fL (7.4-10.4); Platelet Count 123 thou/uL (130-400); RBC Distribution Width 14.4 % (11.5-14.5); Red Blood Cell (RBC) Count 3.57 mill/uL (4.70-6.10); White Blood Cell (WBC) Count 24.2 thou/uL (4.8-10.8)
[2021-03-22 05:23] LABS: Anion Gap 16 mmol/L (10-20); BUN (Urea Nitrogen) 41 mg/dL (8.4-25.7); Calc. Creatinine Clearance 31 mL/min (70-130); Carbon Dioxide 10 mmol/L (22-29); Chloride 114 mmol/L (98-107); Glucose 80 mg/dL (70-105); Potassium 3.7 mmol/L (3.5-5.1); Sodium 136 mmol/L (136-145)
[2021-03-22] MEDS ORDERED: Piperacillin/Tazobactam 3.375 GM in Sodium Chloride 0.9% 100 ML IVPB SCH (06:00)
[2021-03-22] MEDS ORDERED: Magnesium 2 GM/50 ML 2 GM in Premix Bag 1 BAG IVPB SCH (06:49)
[2021-03-22] MEDS ORDERED: Azithromycin 200 MG/5 ML Oral Suspension PO SCH (09:00)
[2021-03-22] MEDS ORDERED: predniSONE 5 MG TAB PO SCH (09:00)
[2021-03-22] MEDS ORDERED: predniSONE 20 MG TAB PO SCH (09:00)
[2021-03-22] MEDS: Folic Acid 1 MG TAB PO SCH (09:35)
[2021-03-22] MEDS: Ferrous Sulfate 325 MG TAB PO SCH (09:35)
[2021-03-22] MEDS: Heparin 5,000 UNITS/ML VIAL SC SCH ×3 (09:35→21:25)
[2021-03-22] MEDS: predniSONE 5 MG TAB PO SCH ×2 (09:35→09:54)
[2021-03-22] MEDS: Calcitriol 0.25 MCG CAP PO SCH (09:35)
[2021-03-22] MEDS ORDERED: Azithromycin 250 MG, Admixture Fee 1 EACH in Sodium Chloride 0.9% 250 ML 250 ML IVPB SCH (13:00)
[2021-03-22] MEDS: cefTRIAXone\\ROCEPHIN 2 GM in Sodium Chloride 0.9% 100 ML IVPB SCH (14:54)
[2021-03-22] MEDS: diphenhydrAMINE 50 MG/ML VIAL IVP SCH (14:54)
[2021-03-22] MEDS: Sodium Bicarbonate Tab 325 MG TAB PO SCH ×2 (14:54→20:31)
[2021-03-23] MEDS: Sodium Chloride 0.9% 1,000 ML IV SCH ×4 (01:27→20:04)
[2021-03-23 05:28] LABS: #Lymphocytes 1.7 thou/uL (1.20-3.40); #Monocytes 0.7 thou/uL (0.11-0.59); #Neutrophils 13.7 thou/uL (1.40-6.50); %Basophils 0.1 % (0.0-1.0); %Eosinophils 0.1 % (0.0-10.0); %Lymphocytes 10.7 % (21.0-51.0); %Monocytes 4.1 % (0.0-10.0); Hemoglobin 9.9 g/dL (14.0-18.0); Mean Corpuscular Hemoglobin 30.7 pg (27.0-31.0); Mean Platelet Volume 7.7 fL (7.4-10.4); Platelet Count 115 thou/uL (130-400); RBC Distribution Width 14.7 % (11.5-14.5); Red Blood Cell (RBC) Count 3.23 mill/uL (4.70-6.10); White Blood Cell (WBC) Count 16.1 thou/uL (4.8-10.8)
[2021-03-23 05:37] LABS: Anion Gap 15 mmol/L (10-20); BUN (Urea Nitrogen) 48 mg/dL (8.4-25.7); Calc. Creatinine Clearance 30 mL/min (70-130); Calcium 8.6 mg/dL (7.8-10.44); Carbon Dioxide 10 mmol/L (22-29); Chloride 116 mmol/L (98-107); Glucose 117 mg/dL (70-105); Sodium 137 mmol/L (136-145)
[2021-03-23] MEDS: Ferrous Sulfate 325 MG TAB PO SCH (09:33)
[2021-03-23] MEDS: Heparin 5,000 UNITS/ML VIAL SC SCH (09:33)
[2021-03-23] MEDS: Folic Acid 1 MG TAB PO SCH (09:33)
[2021-03-23] MEDS: Calcitriol 0.25 MCG CAP PO SCH (09:33)
[2021-03-23] MEDS: Sodium Bicarbonate Tab 325 MG TAB PO SCH ×3 (09:34→20:04)
[2021-03-23] MEDS: cefTRIAXone\\ROCEPHIN 2 GM in Sodium Chloride 0.9% 100 ML IVPB SCH (15:32)
[2021-03-23] MEDS: diphenhydrAMINE 50 MG/ML VIAL IVP SCH (15:32)
[2021-03-23] MEDS: Apixaban 5 MG TAB PO SCH (20:04)
[2021-03-23] MEDS ORDERED: diphenhydrAMINE 25 MG CAP PO SCH (23:30)
[2021-03-24] MEDS: Sodium Chloride 0.9% 1,000 ML IV SCH ×3 (04:04→15:22)
[2021-03-24 05:03] LABS: Anion Gap 16 mmol/L (10-20); BUN (Urea Nitrogen) 42 mg/dL (8.4-25.7); Calc. Creatinine Clearance 31 mL/min (70-130); Calcium 8.7 mg/dL (7.8-10.44); Carbon Dioxide 10 mmol/L (22-29); Chloride 117 mmol/L (98-107); Glucose 80 mg/dL (70-105); Potassium 3.5 mmol/L (3.5-5.1); Sodium 139 mmol/L (136-145)
[2021-03-24 05:05] LABS: #Basophils 0.1 thou/uL (0.0-0.2); #Eosinphils 0.2 thou/uL (0.0-0.7); #Lymphocytes 3.2 thou/uL (1.20-3.40); #Monocytes 0.6 thou/uL (0.11-0.59); #Neutrophils 9.3 thou/uL (1.40-6.50); %Basophils 0.9 % (0.0-1.0); %Eosinophils 1.6 % (0.0-10.0); %Monocytes 4.3 % (0.0-10.0); %Neutrophils 69.3 % (42.0-75.0); Mean Corpuscular HGB CONC 30.6 g/dL (32.0-36.0); Mean Corpuscular Hemoglobin 29.9 pg (27.0-31.0); Mean Corpuscular Volume 97.7 fL (78.0-98.0); Mean Platelet Volume 7.6 fL (7.4-10.4); Platelet Count 159 thou/uL (130-400); RBC Distribution Width 14.6 % (11.5-14.5); Red Blood Cell (RBC) Count 3.68 mill/uL (4.70-6.10); White Blood Cell (WBC) Count 13.4 thou/uL (4.8-10.8)
[2021-03-24] MEDS ORDERED: Lidocaine 1% PF 5 ML VIAL ONE (08:33)
[2021-03-24] MEDS ORDERED: PROPOFOL 200 MG/20 ML VIAL ONE (08:33)
[2021-03-24] MEDS ORDERED: Dronedarone HCl 400 MG TAB PO SCH (09:30)
[2021-03-24] MEDS: Calcitriol 0.25 MCG CAP PO SCH (10:00)
[2021-03-24] MEDS: Folic Acid 1 MG TAB PO SCH (10:00)
[2021-03-24] MEDS: Apixaban 5 MG TAB PO SCH (10:00)
[2021-03-24] MEDS: Ferrous Sulfate 325 MG TAB PO SCH (10:00)
[2021-03-24] MEDS: Sodium Bicarbonate Tab 325 MG TAB PO SCH ×3 (10:00→20:36)
[2021-03-24] MEDS: Acetaminophen 325 MG TAB PO PRN ×2 (10:13→18:04)
[2021-03-24] MEDS: cefTRIAXone\\ROCEPHIN 2 GM in Sodium Chloride 0.9% 100 ML IVPB SCH (13:30)
[2021-03-24] MEDS: diphenhydrAMINE 50 MG/ML VIAL IVP SCH (13:31)
[2021-03-24] MEDS: Dronedarone HCl 400 MG TAB PO SCH (18:01)
[2021-03-24] MEDS: Apixaban 2.5 MG TAB PO SCH (20:36)
[2021-03-24] MEDS ORDERED: Apixaban 2.5 MG TAB PO SCH (21:00)
[2021-03-25 04:38] LABS: #Eosinphils 0.2 thou/uL (0.0-0.7); #Lymphocytes 2.6 thou/uL (1.20-3.40); #Monocytes 0.7 thou/uL (0.11-0.59); #Neutrophils 6.4 thou/uL (1.40-6.50); %Basophils 0.2 % (0.0-1.0); %Eosinophils 1.7 % (0.0-10.0); %Lymphocytes 25.9 % (21.0-51.0); %Monocytes 7.5 % (0.0-10.0); %Neutrophils 64.7 % (42.0-75.0); Hemoglobin 10.5 g/dL (14.0-18.0); Mean Corpuscular HGB CONC 32.8 g/dL (32.0-36.0); Mean Corpuscular Hemoglobin 31.6 pg (27.0-31.0); Mean Corpuscular Volume 96.3 fL (78.0-98.0); Mean Platelet Volume 7.7 fL (7.4-10.4); Platelet Count 127 thou/uL (130-400); RBC Distribution Width 14.4 % (11.5-14.5); Red Blood Cell (RBC) Count 3.31 mill/uL (4.70-6.10); White Blood Cell (WBC) Count 9.9 thou/uL (4.8-10.8)
[2021-03-25] MEDS: Sodium Chloride 0.9% 1,000 ML IV SCH (07:16)
[2021-03-25] MEDS: Dronedarone HCl 400 MG TAB PO SCH (08:20)
[2021-03-25] MEDS: Calcitriol 0.25 MCG CAP PO SCH (08:30)
[2021-03-25] MEDS: Ferrous Sulfate 325 MG TAB PO SCH (08:30)
[2021-03-25] MEDS: Sodium Bicarbonate Tab 325 MG TAB PO SCH (08:30)
[2021-03-25] MEDS: Apixaban 2.5 MG TAB PO SCH (08:30)
[2021-03-25] MEDS: Folic Acid 1 MG TAB PO SCH (08:30)
[2021-03-25 10:17] LABS: Fungus Stain Final report (.)
[2021-03-25] MEDS: diphenhydrAMINE 50 MG/ML VIAL IVP SCH (13:58)
[2021-03-25] MEDS: cefTRIAXone\\ROCEPHIN 2 GM in Sodium Chloride 0.9% 100 ML IVPB SCH (13:58)
[2021-03-25] MEDS ORDERED: Prevnar 13-Val Conj/PF 0.5 ML SYRINGE IM ONE (14:45)
[2021-03-25] MEDS ORDERED: COVID-19 VACC,AD26(JANSSEN)/PF 0.5 ML SYRINGE IM ONE (14:48)
[2021-03-25] MEDS ORDERED: Sodium Bicarbonate Tab 325 MG TAB PO SCH (15:00)
[2021-03-25 16:33] VITALS: BP 118/86; TEMP 98.8
[2021-03-26] MEDS ORDERED: Aspirin 81 mg Enteric Coated Tablet PO SCH (09:00)
== END 2021-03-25 19:38 | disposition home or self-care (01) | DRG 871 ==
LOC: ERS 12:31 → 2NO 15:14
PROVIDERS: ADMIT Student in an Organized Health Care Education/Training Program; ATTEND Student in an Organized Health Care Education/Training Program
PROC: 5A2204Z Restoration of Cardiac Rhythm, Single (ICD-10-PCS; principal; 2021-03-24)
PROC: B24BZZ4 Ultrasonography of Heart with Aorta, Transesophageal (ICD-10-PCS; 2021-03-24)
DX: A40.3 Sepsis due to Streptococcus pneumoniae (principal); J13 Pneumonia due to Streptococcus pneumoniae; N17.9 Acute kidney failure, unspecified; N18.4 Chronic kidney disease, stage 4 (severe); T86.12 Kidney transplant failure; E87.2 Acidosis; I47.2 Ventricular tachycardia; I12.9 Hypertensive chronic kidney disease with stage 1 through stage 4 chronic kidney disease, or unspecified chronic kidney disease; I35.0 Nonrheumatic aortic (valve) stenosis; I48.0 Paroxysmal atrial fibrillation; M32.14 Glomerular disease in systemic lupus erythematosus; Z88.1 Allergy status to other antibiotic agents; Z79.899 Other long term (current) drug therapy; Z90.49 Acquired absence of other specified parts of digestive tract; Z90.5 Acquired absence of kidney
CPT/HCPCS: 0240U; 36415; 71045; 71046; 80048; 80053; 80195; 81003; 81015; 82553; 82570; 83605; 83735; 83880; 84100; 84145; 84156; 84300; 84443; 84484; 85025; 86644; 86645; 86664; 86665; 87040; 87070; 87077; 87086; 87102; 87149; 87186; 87205; 87206; 87633; 92960; 93005; 93010; 93306; 93312; 94760; J0456; J0696; J1200; J1644; J2543; J2704; J3475; J3490; J7070; J7512; J7520; Q0163

== ENCOUNTER 2021-08-28 10:35 | Inpatient (IN) | payer OTHER ==
[2021-08-28] MEDS ORDERED: Clindamycin/D5W 900 mg/50 ml Premix Bag ONE (11:38)
[2021-08-28 11:51] LABS: #Eosinphils 0.3 thou/uL (0.0-0.7); #Lymphocytes 1.7 thou/uL (1.20-3.40); #Neutrophils 10.2 thou/uL (1.40-6.50); %Basophils 0.2 % (0.0-1.0); %Lymphocytes 13.2 % (21.0-51.0); %Monocytes 7.7 % (0.0-10.0); Hemoglobin 11.4 g/dL (14.0-18.0); Mean Corpuscular Hemoglobin 30.8 pg (27.0-31.0); Mean Corpuscular Volume 96.3 fL (78.0-98.0); Mean Platelet Volume 6.7 fL (7.4-10.4); Platelet Count 200 thou/uL (130-400); RBC Distribution Width 13.9 % (11.5-14.5); Red Blood Cell (RBC) Count 3.68 mill/uL (4.70-6.10); White Blood Cell (WBC) Count 13.2 thou/uL (4.8-10.8)
[2021-08-28] MEDS ORDERED: Digoxin 0.5 MG/2 ML AMP ONE (12:06)
[2021-08-28] MEDS ORDERED: Magnesium 2 GM/50 ML BAG (IN WATER) ONE (12:06)
[2021-08-28 12:17] LABS: ALT (SGPT) 13 U/L (8-55); AST (SGOT) 19 U/L (5-34); Albumin 2.8 g/dL (3.5-5.0); Alkaline Phosphatase 81 U/L (40-110); Anion Gap 20 mmol/L (10-20); BUN (Urea Nitrogen) 45 mg/dL (8.4-25.7); Bilirubin, Total 0.7 mg/dL (0.2-1.2); Calc. Creatinine Clearance 0 mL/min (70-130); Calcium 8.9 mg/dL (7.8-10.44); Carbon Dioxide 12 mmol/L (22-29); Chloride 112 mmol/L (98-107); Globulin 4.4 g/dL (2.4-3.5); Glucose 112 mg/dL (70-105); Potassium 4.6 mmol/L (3.5-5.1); Protein, Total 7.2 g/dL (6.0-8.3); Sodium 139 mmol/L (136-145)
[2021-08-28 12:23] LABS: CRP (Inflammatory) 41.64 mg/dL (= or < 0.5)
[2021-08-28 12:33] LABS: CKMB 1.1 ng/mL (0-6.6)
[2021-08-28 14:35] LABS: Lactic Acid 1.8 mmol/L (0.5-2.2)
[2021-08-28 14:54] LABS: Bacteria/HPF None Seen HPF (None Seen); Bilirubin Negative (Negative); Blood, Urine 3+ (Negative); Clarity Turbid (Clear); Glucose, Urine (Dipstick) Normal (Negative); Ketone, Urine Negative (Negative); Leukocyte 500 Leu/uL (Negative); Nitrite Negative (Negative); Protein, Urine (Dipstick) 50 mg/dL (Neg-Trace); Specific Gravity, Urine 1.015 (1.002-1.036); Squamous Epithelial 0-3 HPF (0-3); Urobilinogen Normal mg/dL (Less than 2); pH, Urine 7.5 (5.0-9.0)
[2021-08-28] MEDS ORDERED: Ondansetron PF 4 MG/2 ML Vial IVP PRN (15:00)
[2021-08-28] MEDS ORDERED: Ondansetron ODT 4 MG TAB SL PRN (15:00)
[2021-08-28] MEDS ORDERED: Sodium Chloride 0.9% 1,000 ML IV SCH (15:00)
[2021-08-28 15:01] LABS: RBC/HPF 21-50 HPF (0-3)
[2021-08-28] MEDS ORDERED: Acetaminophen 325 MG TAB PO PRN (15:22)
[2021-08-28] MEDS ORDERED: Metoprolol Tartrate 5 MG/5 ML VIAL IVP PRN (15:29)
[2021-08-28 16:40] LABS: Troponin I 0.011 ng/mL (< 0.028)
[2021-08-28] MEDS ORDERED: Digoxin 0.5 MG/2 ML AMP SLOW IVP SCH (17:30)
[2021-08-28] MEDS: Cefepime 1 GM in Sodium Chloride 0.9% 100 ML IVPB SCH (18:01)
[2021-08-28] MEDS: Sodium Chloride 0.9% 1,000 ML IV SCH (18:11)
[2021-08-28] MEDS: Clindamycin/D5W 900 MG in Premix Bag 1 BAG IVPB SCH (19:00)
[2021-08-28] MEDS: Heparin 5,000 UNITS/ML VIAL SC SCH (20:17)
[2021-08-28 21:45] LABS: SARS-CoV-2 PCR by NAA Not Detected (NotDetected)
[2021-08-28] MEDS: HYDROcodone/Acetaminophen 5/325 mg Tablet PO PRN (22:00)
[2021-08-29] MEDS: Clindamycin/D5W 900 MG in Premix Bag 1 BAG IVPB SCH (03:35)
[2021-08-29] MEDS: Cefepime 1 GM in Sodium Chloride 0.9% 100 ML IVPB SCH ×2 (04:42→16:24)
[2021-08-29] MEDS: Sodium Chloride 0.9% 1,000 ML IV SCH ×2 (04:43→21:37)
[2021-08-29 05:06] LABS: #Eosinphils 0.2 thou/uL (0.0-0.7); #Lymphocytes 2.3 thou/uL (1.20-3.40); #Monocytes 1.2 thou/uL (0.11-0.59); #Neutrophils 7.6 thou/uL (1.40-6.50); %Eosinophils 1.7 % (0.0-10.0); %Lymphocytes 20.5 % (21.0-51.0); %Monocytes 10.8 % (0.0-10.0); Hemoglobin 10.7 g/dL (14.0-18.0); Mean Corpuscular Hemoglobin 29.1 pg (27.0-31.0); Mean Corpuscular Volume 96.9 fL (78.0-98.0); Mean Platelet Volume 6.8 fL (7.4-10.4); Platelet Count 157 thou/uL (130-400); Red Blood Cell (RBC) Count 3.68 mill/uL (4.70-6.10); White Blood Cell (WBC) Count 11.3 thou/uL (4.8-10.8)
[2021-08-29 05:27] LABS: Anion Gap 13 mmol/L (10-20); BUN (Urea Nitrogen) 43 mg/dL (8.4-25.7); Calc. Creatinine Clearance 30 mL/min (70-130); Calcium 9.1 mg/dL (7.8-10.44); Carbon Dioxide 13 mmol/L (22-29); Chloride 115 mmol/L (98-107); Glucose 90 mg/dL (70-105); Potassium 4.2 mmol/L (3.5-5.1); Sodium 137 mmol/L (136-145)
[2021-08-29] MEDS ORDERED: Epoetin (ESRD) 20,000 UNITS/ML SC SCH (09:00)
[2021-08-29] MEDS: HYDROcodone/Acetaminophen 5/325 mg Tablet PO PRN (09:49)
[2021-08-29] MEDS: predniSONE 20 MG TAB PO SCH (09:52)
[2021-08-29] MEDS: Ferrous Sulfate 325 MG TAB PO SCH (09:52)
[2021-08-29] MEDS: Folic Acid 1 MG TAB PO SCH (09:52)
[2021-08-29] MEDS: Heparin 5,000 UNITS/ML VIAL SC SCH ×3 (09:59→21:37)
[2021-08-30] MEDS: Cefepime 1 GM in Sodium Chloride 0.9% 100 ML IVPB SCH ×2 (03:50→16:06)
[2021-08-30 04:49] LABS: #Eosinphils 0.1 thou/uL (0.0-0.7); #Lymphocytes 2.1 thou/uL (1.20-3.40); #Monocytes 1.4 thou/uL (0.11-0.59); #Neutrophils 9.8 thou/uL (1.40-6.50); %Basophils 0.1 % (0.0-1.0); %Eosinophils 0.4 % (0.0-10.0); %Monocytes 10.2 % (0.0-10.0); %Neutrophils 73.3 % (42.0-75.0); Hemoglobin 9.8 g/dL (14.0-18.0); Mean Corpuscular HGB CONC 30.7 g/dL (32.0-36.0); Mean Corpuscular Hemoglobin 30.2 pg (27.0-31.0); Mean Corpuscular Volume 98.4 fL (78.0-98.0); Mean Platelet Volume 7.2 fL (7.4-10.4); Platelet Count 150 thou/uL (130-400); Red Blood Cell (RBC) Count 3.26 mill/uL (4.70-6.10); White Blood Cell (WBC) Count 13.4 thou/uL (4.8-10.8)
[2021-08-30 05:19] LABS: Anion Gap 15 mmol/L (10-20); BUN (Urea Nitrogen) 47 mg/dL (8.4-25.7); Calc. Creatinine Clearance 29 mL/min (70-130); Calcium 8.9 mg/dL (7.8-10.44); Carbon Dioxide 11 mmol/L (22-29); Chloride 115 mmol/L (98-107); Glucose 117 mg/dL (70-105); Potassium 4.4 mmol/L (3.5-5.1); Sodium 137 mmol/L (136-145)
[2021-08-30] MEDS: HYDROcodone/Acetaminophen 5/325 mg Tablet PO PRN (06:20)
[2021-08-30] MEDS ORDERED: Apixaban 2.5 MG TAB PO SCH (09:00)
[2021-08-30] MEDS: Sodium Bicarbonate Tab 325 MG TAB PO SCH ×3 (10:03→20:07)
[2021-08-30] MEDS: Calcitriol 0.25 MCG CAP PO SCH ×2 (10:03→10:04)
[2021-08-30] MEDS: Ferrous Sulfate 325 MG TAB PO SCH (10:04)
[2021-08-30] MEDS: Folic Acid 1 MG TAB PO SCH (10:04)
[2021-08-30] MEDS: predniSONE 20 MG TAB PO SCH (10:05)
[2021-08-30] MEDS: Heparin 5,000 UNITS/ML VIAL SC SCH (10:15)
[2021-08-30] MEDS: Sodium Chloride 0.9% 1,000 ML IV SCH ×2 (15:00→16:08)
[2021-08-30] MEDS: EPOETIN ALFA-EPBX (ESRD) 4,000 UNIT/ML VIAL SC SCH (17:15)
[2021-08-31] MEDS: Sodium Chloride 0.9% 1,000 ML IV SCH ×2 (01:05→10:50)
[2021-08-31] MEDS: Cefepime 1 GM in Sodium Chloride 0.9% 100 ML IVPB SCH ×2 (03:17→21:01)
[2021-08-31 06:40] LABS: #Eosinphils 0.1 thou/uL (0.0-0.7); #Lymphocytes 2.8 thou/uL (1.20-3.40); #Monocytes 1.4 thou/uL (0.11-0.59); %Basophils 0.3 % (0.0-1.0); %Eosinophils 0.4 % (0.0-10.0); %Lymphocytes 17.2 % (21.0-51.0); %Monocytes 8.3 % (0.0-10.0); %Neutrophils 73.8 % (42.0-75.0); Hemoglobin 10.2 g/dL (14.0-18.0); Mean Corpuscular HGB CONC 32.2 g/dL (32.0-36.0); Mean Corpuscular Hemoglobin 31.3 pg (27.0-31.0); Mean Corpuscular Volume 97.4 fL (78.0-98.0); Mean Platelet Volume 7.3 fL (7.4-10.4); Platelet Count 178 thou/uL (130-400); RBC Distribution Width 13.9 % (11.5-14.5); Red Blood Cell (RBC) Count 3.26 mill/uL (4.70-6.10); White Blood Cell (WBC) Count 16.3 thou/uL (4.8-10.8)
[2021-08-31 07:01] LABS: Anion Gap 16 mmol/L (10-20); BUN (Urea Nitrogen) 51 mg/dL (8.4-25.7); Calc. Creatinine Clearance 28 mL/min (70-130); Calcium 9.4 mg/dL (7.8-10.44); Carbon Dioxide 11 mmol/L (22-29); Chloride 112 mmol/L (98-107); Glucose 85 mg/dL (70-105); Potassium 4.3 mmol/L (3.5-5.1); Sodium 135 mmol/L (136-145)
[2021-08-31] MEDS ORDERED: Artificial Tear Sol 15 ML BOT EA EYE PRN (08:00)
[2021-08-31] MEDS ORDERED: Loratadine 10 MG TAB PO PRN (08:00)
[2021-08-31] MEDS ORDERED: GUAIFENESIN SF SOLN 200 MG/10 ML UDCUP PO PRN (08:00)
[2021-08-31] MEDS ORDERED: Bisacodyl 5 MG TAB PO PRN (08:00)
[2021-08-31] MEDS ORDERED: Calcium Carbonate 500 MG ChewTAB PO PRN (08:00)
[2021-08-31] MEDS ORDERED: Loperamide HCl 2 MG CAP PO PRN (08:00)
[2021-08-31] MEDS ORDERED: Sodium Chloride 0.65% Nasal 44 ML BOT EA NARE PRN (08:00)
[2021-08-31] MEDS ORDERED: Senokot S 8.6-50 MG TAB PO PRN (08:00)
[2021-08-31] MEDS ORDERED: Hydrocerin (Eucerin) Cream 120 gm Jar TOP PRN (08:00)
[2021-08-31] MEDS ORDERED: Cepastat Lozenges 1 LOZ PO PRN (08:00)
[2021-08-31] MEDS ORDERED: hydrALAZINE 20 MG/ML VIAL SLOW IVP PRN (08:00)
[2021-08-31] MEDS: predniSONE 20 MG TAB PO SCH (09:07)
[2021-08-31] MEDS: Sodium Bicarbonate Tab 325 MG TAB PO SCH ×4 (09:09→21:01)
[2021-08-31] MEDS: Folic Acid 1 MG TAB PO SCH (09:09)
[2021-08-31] MEDS: Ferrous Sulfate 325 MG TAB PO SCH (09:10)
[2021-08-31] MEDS: Calcitriol 0.25 MCG CAP PO SCH (09:10)
[2021-08-31] MEDS ORDERED: traMADol HCl 50 MG TAB PO PRN (14:39)
[2021-08-31] MEDS ORDERED: Fentanyl 100 MCG/2 ML VIAL ONE ×2 (14:43→16:15)
[2021-08-31] MEDS ORDERED: Lidocaine 1% PF 5 ML VIAL ONE (14:57)
[2021-08-31] MEDS ORDERED: Ondansetron PF 4 MG/2 ML Vial ONE (14:57)
[2021-08-31] MEDS ORDERED: PROPOFOL 200 MG/20 ML VIAL ONE (14:57)
[2021-08-31] MEDS ORDERED: HYDROmorphone 2 MG/ML VIAL SLOW IVP PRN (15:20)
[2021-08-31] MEDS ORDERED: Promethazine HCl 25 MG/ML VIAL IM PRN (15:20)
[2021-08-31] MEDS ORDERED: Promethazine HCl 25 MG/ML VIAL IVPB PRN (15:20)
[2021-08-31] MEDS ORDERED: Ondansetron HCl/PF 4 MG/2 ML Vial IVP PRN (15:20)
[2021-08-31] MEDS ORDERED: Silver Nitrate Application 1 EACH ONE (15:33)
[2021-08-31] MEDS: Heparin 5,000 UNITS/ML VIAL SC SCH ×2 (19:20→21:00)
[2021-09-01] MEDS: Sodium Chloride 0.9% 1,000 ML IV SCH ×4 (03:31→21:47)
[2021-09-01 04:42] LABS: #Lymphocytes 1.5 thou/uL (1.20-3.40); #Monocytes 0.8 thou/uL (0.11-0.59); #Neutrophils 9.8 thou/uL (1.40-6.50); %Basophils 0.1 % (0.0-1.0); %Eosinophils 0.1 % (0.0-10.0); %Lymphocytes 12.3 % (21.0-51.0); %Monocytes 6.4 % (0.0-10.0); %Neutrophils 81.1 % (42.0-75.0); Mean Corpuscular HGB CONC 30.7 g/dL (32.0-36.0); Mean Corpuscular Hemoglobin 29.7 pg (27.0-31.0); Mean Corpuscular Volume 96.6 fL (78.0-98.0); Mean Platelet Volume 7.2 fL (7.4-10.4); Platelet Count 148 thou/uL (130-400); RBC Distribution Width 14.2 % (11.5-14.5); Red Blood Cell (RBC) Count 3.04 mill/uL (4.70-6.10)
[2021-09-01 05:10] LABS: ALT (SGPT) 16 U/L (8-55); AST (SGOT) 21 U/L (5-34); Albumin 2.6 g/dL (3.5-5.0); Alkaline Phosphatase 87 U/L (40-110); Anion Gap 15 mmol/L (10-20); BUN (Urea Nitrogen) 55 mg/dL (8.4-25.7); Bilirubin, Total 0.3 mg/dL (0.2-1.2); Calc. Creatinine Clearance 28 mL/min (70-130); Carbon Dioxide 12 mmol/L (22-29); Chloride 116 mmol/L (98-107); Globulin 4.7 g/dL (2.4-3.5); Glucose 168 mg/dL (70-105); Magnesium 2.4 mg/dL (1.6-2.6); Phosphorus 5.2 mg/dL (2.3-4.7); Potassium 5.1 mmol/L (3.5-5.1); Protein, Total 7.3 g/dL (6.0-8.3); Sodium 138 mmol/L (136-145)
[2021-09-01] MEDS: Cefepime 1 GM in Sodium Chloride 0.9% 100 ML IVPB SCH ×3 (09:55→20:26)
[2021-09-01] MEDS: Ferrous Sulfate 325 MG TAB PO SCH (09:57)
[2021-09-01] MEDS: Sodium Bicarbonate Tab 325 MG TAB PO SCH ×4 (09:57→20:25)
[2021-09-01] MEDS: Calcitriol 0.25 MCG CAP PO SCH (09:57)
[2021-09-01] MEDS: predniSONE 20 MG TAB PO SCH (09:59)
[2021-09-01] MEDS: Folic Acid 1 MG TAB PO SCH (09:59)
[2021-09-01] MEDS: Albumin 25% 25 GM/100 ML BOT IVPB SCH ×3 (10:01→20:26)
[2021-09-01] MEDS: Heparin 5,000 UNITS/ML VIAL SC SCH ×3 (10:02→20:26)
[2021-09-01] MEDS: HYDROcodone/Acetaminophen 5/325 mg Tablet PO PRN ×2 (11:08→21:48)
[2021-09-02] MEDS: Albumin 25% 25 GM/100 ML BOT IVPB SCH ×4 (03:26→23:29)
[2021-09-02 04:35] LABS: #Lymphocytes 1.9 thou/uL (1.20-3.40); #Monocytes 0.7 thou/uL (0.11-0.59); #Neutrophils 7.4 thou/uL (1.40-6.50); %Basophils 0.2 % (0.0-1.0); %Eosinophils 0.2 % (0.0-10.0); %Lymphocytes 18.7 % (21.0-51.0); %Monocytes 7.3 % (0.0-10.0); %Neutrophils 73.7 % (42.0-75.0); Hemoglobin 8.4 g/dL (14.0-18.0); Mean Corpuscular HGB CONC 30.4 g/dL (32.0-36.0); Mean Corpuscular Hemoglobin 29.5 pg (27.0-31.0); Mean Corpuscular Volume 96.8 fL (78.0-98.0); Mean Platelet Volume 7.3 fL (7.4-10.4); Platelet Count 152 thou/uL (130-400); RBC Distribution Width 14.4 % (11.5-14.5); Red Blood Cell (RBC) Count 2.84 mill/uL (4.70-6.10)
[2021-09-02 05:55] LABS: Anion Gap 15 mmol/L (10-20); BUN (Urea Nitrogen) 60 mg/dL (8.4-25.7); Calc. Creatinine Clearance 27 mL/min (70-130); Calcium 9.2 mg/dL (7.8-10.44); Carbon Dioxide 13 mmol/L (22-29); Chloride 118 mmol/L (98-107); Glucose 100 mg/dL (70-105); Potassium 4.9 mmol/L (3.5-5.1); Sodium 141 mmol/L (136-145)
[2021-09-02 06:11] VITALS: BMI 39.5
[2021-09-02] MEDS: Calcitriol 0.25 MCG CAP PO SCH (08:37)
[2021-09-02] MEDS: HYDROcodone/Acetaminophen 5/325 mg Tablet PO PRN (08:37)
[2021-09-02] MEDS: Folic Acid 1 MG TAB PO SCH (08:37)
[2021-09-02] MEDS: Ferrous Sulfate 325 MG TAB PO SCH (08:37)
[2021-09-02] MEDS: Sodium Bicarbonate Tab 325 MG TAB PO SCH ×4 (08:37→20:17)
[2021-09-02] MEDS: predniSONE 20 MG TAB PO SCH (08:38)
[2021-09-02] MEDS: Cefepime 1 GM in Sodium Chloride 0.9% 100 ML IVPB SCH ×2 (08:39→20:17)
[2021-09-02] MEDS: Heparin 5,000 UNITS/ML VIAL SC SCH ×3 (08:39→20:16)
[2021-09-02] MEDS ORDERED: Albumin 25% 25 GM/100 ML BOT IVPB SCH (10:00)
[2021-09-02] MEDS: Sodium Chloride 0.9% 1,000 ML IV SCH ×2 (15:28→15:33)
[2021-09-03] MEDS: Sodium Chloride 0.9% 1,000 ML IV SCH ×3 (02:36→15:49)
[2021-09-03 04:57] LABS: Anion Gap 18 mmol/L (10-20); BUN (Urea Nitrogen) 64 mg/dL (8.4-25.7); Bilirubin, Total 0.5 mg/dL (0.2-1.2); Calc. Creatinine Clearance 29 mL/min (70-130); Calcium 9.4 mg/dL (7.8-10.44); Carbon Dioxide 11 mmol/L (22-29); Chloride 117 mmol/L (98-107); Glucose 83 mg/dL (70-105); Potassium 4.5 mmol/L (3.5-5.1); Sodium 141 mmol/L (136-145)
[2021-09-03 04:58] LABS: ALT (SGPT) 15 U/L (8-55); AST (SGOT) 18 U/L (5-34); Albumin 4.1 g/dL (3.5-5.0); Alkaline Phosphatase 63 U/L (40-110); Globulin 3.9 g/dL (2.4-3.5)
[2021-09-03] MEDS: Albumin 25% 25 GM/100 ML BOT IVPB SCH ×2 (05:36→11:48)
[2021-09-03] MEDS: Calcitriol 0.25 MCG CAP PO SCH (09:39)
[2021-09-03] MEDS: Cefepime 1 GM in Sodium Chloride 0.9% 100 ML IVPB SCH ×2 (09:39→20:34)
[2021-09-03] MEDS: Ferrous Sulfate 325 MG TAB PO SCH (09:39)
[2021-09-03] MEDS: Folic Acid 1 MG TAB PO SCH (09:40)
[2021-09-03] MEDS: Heparin 5,000 UNITS/ML VIAL SC SCH (09:41)
[2021-09-03] MEDS: predniSONE 20 MG TAB PO SCH (09:42)
[2021-09-03] MEDS: Sodium Bicarbonate Tab 325 MG TAB PO SCH ×3 (09:42→20:34)
[2021-09-03 16:16] LABS: Base Excess -14.5 mEq/L (-2.0 to +3.0); Calcium, Ionized (venous) 1.17 mmol/L (1.16-1.32); Chloride (VBG) 117 mmol/L (98-106); Hemoglobin (Hb) 9.6 g/dL (13.1-17.2); Potassium (VBG) 4.65 mmol/L (3.70-5.30); Sodium 141.8 mmol/L (133-146)
[2021-09-03 16:19] LABS: Actual Bicarbonate (HCO3v) 10 mEq/L (22-28)
[2021-09-04] MEDS: Sodium Chloride 0.9% 1,000 ML IV SCH ×4 (02:20→20:26)
[2021-09-04 04:48] LABS: #Lymphocytes 1.6 thou/uL (1.20-3.40); #Neutrophils 9.2 thou/uL (1.40-6.50); %Eosinophils 0.2 % (0.0-10.0); %Lymphocytes 13.9 % (21.0-51.0); %Monocytes 8.2 % (0.0-10.0); %Neutrophils 77.7 % (42.0-75.0); Hemoglobin 8.2 g/dL (14.0-18.0); Mean Corpuscular HGB CONC 30.7 g/dL (32.0-36.0); Mean Corpuscular Hemoglobin 29.8 pg (27.0-31.0); Mean Corpuscular Volume 97.3 fL (78.0-98.0); Mean Platelet Volume 7.4 fL (7.4-10.4); Platelet Count 170 thou/uL (130-400); RBC Distribution Width 14.5 % (11.5-14.5); Red Blood Cell (RBC) Count 2.74 mill/uL (4.70-6.10); White Blood Cell (WBC) Count 11.8 thou/uL (4.8-10.8)
[2021-09-04 05:03] LABS: Anion Gap 15 mmol/L (10-20); BUN (Urea Nitrogen) 64 mg/dL (8.4-25.7); Calc. Creatinine Clearance 33 mL/min (70-130); Calcium 9.5 mg/dL (7.8-10.44); Carbon Dioxide 12 mmol/L (22-29); Cardiac Risk 3.3 (Less than 4.5); Chloride 119 mmol/L (98-107); Cholesterol 73 mg/dl (< 200 Desired); Glucose 99 mg/dL (70-105); HDL Cholesterol 22 mg/dL (>60 Neg Risk); LDL Cholesterol, Calculated 41 mg/dL; Potassium 4.7 mmol/L (3.5-5.1); Sodium 141 mmol/L (136-145); Triglycerides 52 mg/dL (Less than 150)
[2021-09-04] MEDS: Ferrous Sulfate 325 MG TAB PO SCH (09:49)
[2021-09-04] MEDS: Cefepime 1 GM in Sodium Chloride 0.9% 100 ML IVPB SCH ×2 (09:49→20:25)
[2021-09-04] MEDS: Calcitriol 0.25 MCG CAP PO SCH (09:49)
[2021-09-04] MEDS: Sodium Bicarbonate Tab 325 MG TAB PO SCH ×3 (09:50→20:25)
[2021-09-04] MEDS: predniSONE 20 MG TAB PO SCH (09:50)
[2021-09-04] MEDS: Folic Acid 1 MG TAB PO SCH (09:50)
[2021-09-05] MEDS: Sodium Chloride 0.9% 1,000 ML IV SCH (04:48)
[2021-09-05 05:16] LABS: #Basophils 0.1 thou/uL (0.0-0.2); #Lymphocytes 1.9 thou/uL (1.20-3.40); #Monocytes 0.8 thou/uL (0.11-0.59); #Neutrophils 8.6 thou/uL (1.40-6.50); %Basophils 0.5 % (0.0-1.0); %Eosinophils 0.4 % (0.0-10.0); %Lymphocytes 16.5 % (21.0-51.0); %Monocytes 7.2 % (0.0-10.0); %Neutrophils 75.5 % (42.0-75.0); Hemoglobin 8.6 g/dL (14.0-18.0); Mean Corpuscular HGB CONC 29.9 g/dL (32.0-36.0); Mean Corpuscular Hemoglobin 28.7 pg (27.0-31.0); Mean Corpuscular Volume 96.2 fL (78.0-98.0); Mean Platelet Volume 7.3 fL (7.4-10.4); Platelet Count 204 thou/uL (130-400); RBC Distribution Width 14.4 % (11.5-14.5); White Blood Cell (WBC) Count 11.3 thou/uL (4.8-10.8)
[2021-09-05 05:35] LABS: Anion Gap 16 mmol/L (10-20); BUN (Urea Nitrogen) 65 mg/dL (8.4-25.7); Calc. Creatinine Clearance 34 mL/min (70-130); Calcium 9.3 mg/dL (7.8-10.44); Carbon Dioxide 12 mmol/L (22-29); Chloride 118 mmol/L (98-107); Glucose 86 mg/dL (70-105); Potassium 4.7 mmol/L (3.5-5.1); Sodium 141 mmol/L (136-145)
[2021-09-05] MEDS ORDERED: Sodium Bicarbonate 150 MEQ in Dextrose 5% in Water 1,000 ML IV SCH (08:45)
[2021-09-05] MEDS: Cefepime 1 GM in Sodium Chloride 0.9% 100 ML IVPB SCH (09:45)
[2021-09-05] MEDS: Calcitriol 0.25 MCG CAP PO SCH (09:46)
[2021-09-05] MEDS: Sodium Bicarbonate Tab 325 MG TAB PO SCH ×2 (09:46→16:31)
[2021-09-05] MEDS: Folic Acid 1 MG TAB PO SCH (09:46)
[2021-09-05] MEDS: Ferrous Sulfate 325 MG TAB PO SCH (09:46)
[2021-09-05] MEDS: predniSONE 20 MG TAB PO SCH (09:47)
[2021-09-05 11:44] LABS: SARS-CoV-2 PCR by NAA Not Detected (NotDetected)
[2021-09-05] MEDS: EPOETIN ALFA-EPBX (ESRD) 4,000 UNIT/ML VIAL SC SCH (16:32)
[2021-09-05 20:25] VITALS: BP 159/78; TEMP 98.6
== END 2021-09-05 21:00 | DRG 853 ==
LOC: ERS 10:35 → 2NO 13:21
PROVIDERS: ADMIT Internal Medicine; ATTEND Family Medicine
PROC: 0Y6N0Z9 Detachment at Left Foot, Partial 1st Ray, Open Approach (ICD-10-PCS; principal; 2021-08-31)
DX: A41.01 Sepsis due to Methicillin susceptible Staphylococcus aureus (principal); I21.A1 Myocardial infarction type 2; N18.4 Chronic kidney disease, stage 4 (severe); L03.115 Cellulitis of right lower limb; M86.171 Other acute osteomyelitis, right ankle and foot; N17.9 Acute kidney failure, unspecified; N25.81 Secondary hyperparathyroidism of renal origin; E87.2 Acidosis; T86.11 Kidney transplant rejection; G93.40 Encephalopathy, unspecified; Z20.822 Contact with and (suspected) exposure to COVID-19; M32.9 Systemic lupus erythematosus, unspecified; I48.0 Paroxysmal atrial fibrillation; D63.1 Anemia in chronic kidney disease; Y83.8 Other surgical procedures as the cause of abnormal reaction of the patient, or of later complication, without mention of misadventure at the time of the procedure; R65.20 Severe sepsis without septic shock; E66.9 Obesity, unspecified; I70.202 Unspecified atherosclerosis of native arteries of extremities, left leg; R31.9 Hematuria, unspecified; E83.39 Other disorders of phosphorus metabolism; Z68.28 Body mass index [BMI] 28.0-28.9, adult; Z88.1 Allergy status to other antibiotic agents; Z88.6 Allergy status to analgesic agent; Z79.52 Long term (current) use of systemic steroids; Z79.899 Other long term (current) drug therapy; Z91.14 Patient's other noncompliance with medication regimen; Z90.49 Acquired absence of other specified parts of digestive tract
CPT/HCPCS: 36415; 36416; 70486; 70551; 71045; 80048; 80053; 80061; 80195; 81003; 81015; 82140; 82550; 82553; 82805; 83605; 83690; 83735; 83880; 84100; 84443; 84484; 85025; 85652; 86140; 87040; 87077; 87086; 87149; 87186; 88305; 93005; 93306; 93923; J0692; J1160; J1644; J1956; J2405; J2704; J3010; J3475; J3490; J7050; J7070; J7512; J7520; P9047; Q5105; U0003; U0005

== ENCOUNTER 2021-09-25 17:37 | Emergency (ER) | payer OTHER | END 2021-09-25 20:49 | disposition home or self-care (01) | LOC: ERS 17:37 | DX: T81.49XA Infection following a procedure, other surgical site, initial encounter (principal); I48.91 Unspecified atrial fibrillation; Z79.899 Other long term (current) drug therapy | CPT/HCPCS: 99282 ==

== ENCOUNTER 2021-10-14 10:59 | Outpatient (CLI) | payer OTHER ==
[2021-10-14 12:15] LABS: #Eosinphils 0.3 10x3/uL (0.0-0.5); #Monocytes 0.5 10x3/uL (0.0-1.1); #Neutrophils 6.1 10x3/uL (1.5-8.4); %Basophils 0.4 % (0.0-2.0); %Eosinophils 2.6 % (0.0-6.0); %Lymphocytes 29.6 % (18.0-47.0); %Monocytes 5.3 % (0.0-10.0); %Neutrophils 61.2 % (40.0-75.0); Hemoglobin 10.4 g/dL (13.5-17.5); Mean Corpuscular HGB CONC 28.8 g/dL (32.0-36.0); Mean Corpuscular Hemoglobin 28.6 pg (27.0-33.0); Mean Corpuscular Volume 99.2 fl (81.2-95.1); Mean Platelet Volume 9.8 fl (7.4-10.4); Platelet Count 178 10x3/uL (150-450); RBC Distribution Width 17.9 % (11.5-14.5); Red Blood Cell (RBC) Count 3.64 10x6/uL (4.32-5.72); White Blood Cell (WBC) Count 9.9 10x3/uL (3.5-10.5)
[2021-10-14 12:44] LABS: Anion Gap 16 mmol/L (10-20); BUN (Urea Nitrogen) 42 mg/dL (8.4-25.7); Calc. Creatinine Clearance 0 mL/min (70-130); Calcium 8.6 mg/dL (7.8-10.44); Carbon Dioxide 12 mmol/L (22-29); Chloride 113 mmol/L (98-107); Glucose 74 mg/dL (70-105); Potassium 4.2 mmol/L (3.5-5.1); Sodium 137 mmol/L (136-145)
[2021-10-14 14:04] LABS: Platelet Morphology Comment Appears Adequate; RBC Morphology Normal
[2021-10-15 00:16] LABS: SARS-CoV-2 PCR by NAA DETECTED (NotDetected)
== END 2021-10-14 11:00 | disposition home or self-care (01) ==
LOC: LABBT 10:59
PROVIDERS: ATTEND Specialist
DX: Z01.812 Encounter for preprocedural laboratory examination (principal); U07.1 COVID-19; Z89.422 Acquired absence of other left toe(s)
CPT/HCPCS: 80048; 85025; U0003; U0005

== ENCOUNTER 2021-10-26 07:02 | Day surgery (SDC) | payer OTHER ==
[2021-10-14 13:13] VITALS: BMI 32.1
[2021-10-26] MEDS ORDERED: Vancomycin 1 GM in Premix Bag 1 BAG IVPB SCH (07:45)
[2021-10-26] MEDS ORDERED: Acetaminophen 500 MG TAB ONE (07:51)
[2021-10-26] MEDS ORDERED: Lidocaine 1% MPF 2 ML VIAL ONE (08:13)
[2021-10-26] MEDS ORDERED: Bupivacaine PF 0.5% 30 ML VIAL ONE (08:25)
[2021-10-26] MEDS ORDERED: Xylocaine 1% w/ Epi 1:100K 10 ML VIAL ONE (08:25)
[2021-10-26] MEDS ORDERED: Ondansetron PF 4 MG/2 ML Vial ONE ×2 (08:38→08:49)
[2021-10-26] MEDS ORDERED: Metoclopramide HCl 10 MG/2 ML VIAL ONE ×2 (08:38→08:49)
[2021-10-26] MEDS ORDERED: Fentanyl 100 MCG/2 ML VIAL ONE (08:38)
[2021-10-26] MEDS ORDERED: PROPOFOL 20 ML ONE (08:38)
[2021-10-26] MEDS ORDERED: Famotidine/PF 20 mg/2ml Vial ONE (08:38)
[2021-10-26] MEDS ORDERED: Cefepime 2 GM in Sodium Chloride 0.9% 100 ML IVPB SCH (08:45)
[2021-10-26] MEDS ORDERED: PROPOFOL 200 MG/20 ML VIAL ONE (08:49)
[2021-10-26] MEDS ORDERED: Lidocaine 1% PF 5 ML VIAL ONE (08:49)
[2021-10-26] MEDS ORDERED: ePHEDrine 50 MG/ML VIAL ONE (08:49)
[2021-10-26] MEDS ORDERED: PHENYLEPHRINE-NS 100 MCG/ML 10 ML SYRINGE ONE (08:49)
[2021-10-26] MEDS ORDERED: Clindamycin/D5W 900 mg/50 ml Premix Bag ONE (09:18)
[2021-10-26] MEDS ORDERED: HYDROcodone/Acetaminophen 5/325 mg Tablet ONE (11:26)
== END 2021-10-26 11:38 | disposition home or self-care (01) ==
LOC: SDC 07:02
PROVIDERS: ATTEND Specialist
PROC: 0Y6N0ZF Detachment at Left Foot, Partial 5th Ray, Open Approach (ICD-10-PCS; principal; 2021-10-26)
DX: E11.52 Type 2 diabetes mellitus with diabetic peripheral angiopathy with gangrene (principal); I96 Gangrene, not elsewhere classified; E11.69 Type 2 diabetes mellitus with other specified complication; M86.172 Other acute osteomyelitis, left ankle and foot; M86.672 Other chronic osteomyelitis, left ankle and foot; E11.621 Type 2 diabetes mellitus with foot ulcer; L97.525 Non-pressure chronic ulcer of other part of left foot with muscle involvement without evidence of necrosis; E11.40 Type 2 diabetes mellitus with diabetic neuropathy, unspecified; M19.90 Unspecified osteoarthritis, unspecified site; M10.9 Gout, unspecified; I11.9 Hypertensive heart disease without heart failure; Z79.2 Long term (current) use of antibiotics; Z79.52 Long term (current) use of systemic steroids; Z79.899 Other long term (current) drug therapy; Z88.1 Allergy status to other antibiotic agents; Z89.412 Acquired absence of left great toe
CPT/HCPCS: 88305; 88311; J0692; J2405; J2704; J2765; J3010; J3370; J3490; S0020; S0028